=== PATIENT | female | born 1980 | race Caucasian/White ===

== ENCOUNTER → 2017-11-08 02:25 | Outpatient (CLI) | payer MEDICAID, SELFPAY ==
--- NOTE | 2017-11-08 10:58 | DI.REPORT_ITS ---
SYMPTOMS/DIAGNOSIS: CHRONIC DIARRHEA, K52.9, CHECK STOOL QUANTITY, ? OVERFLOW DIARRHEA DUE TO CONSTIPATION FLAT PLATE ABDOMEN: Two views. Comparison CT scan is 06/12/16. There is a small to moderate amount of retained stool predominantly involving the ascending and proximal transverse colon. No evidence of obstruction is seen. There are surgical clips in the right upper quadrant of the abdomen likely reflecting prior cholecystectomy. The bones and joints appear grossly unremarkable. IMPRESSION: Small amount of retained stool seen in the ascending and proximal transverse colon.
== END ==
PROVIDERS: PCP Family Medicine; Visit Provider Family Medicine
DX: K52.9 Noninfective gastroenteritis and colitis, unspecified (principal)
CPT/HCPCS: 74018

== ENCOUNTER 2022-02-13 13:54 | Emergency (ER) | payer MEDICAID, SELFPAY ==
[2022-02-13] VITALS (114 sets, daily range): BP systolic 50–155; BP diastolic 17–85; PULSE 42–131; RESP 17–41; TEMP 36.6; O2SAT 41–92
--- NOTE | 2022-02-13 13:45 | RT.EKG_ITS ---
APPROVED REPORT Exam: Resting ECG Reason for Exam: SEIZURE Patient Location: E HR:124 bpm ECG Measurements Heart Rate 124 AXIS NM 131 P 58 QRSd 86 QRS 53 QT 326 T 43 QTc 467 Conclusion Sinus tachycardia...rate> 99 Atrial premature complex...SV complex w/ short R-R interval Normal Sisters Nonspecific ST-T changes but significant baseline waver
--- NOTE | 2022-02-13 14:09 | ED.GENADUL_ITS ---
Discharge Plan Discharge Details Chief Complaint: Seizure Primary Care Provider: Anisa Garcia ED Provider: Jacques Perez Home Meds and New Rx's Prescriptions: No Action (DME) peak flow meter [Asthma Check Meter] 1 EACH device 1 ea Miscellaneous PRN albuterol sulfate [Proventil HFA] 1 PUFF HFA aerosol inhaler 1 puff Inhalation PRN PRN Medical Decision Making 41-year-old female with a past medical history of psychogenic seizures, asthma, depression, hyperlipidemia, morbid obesity, PCOS, presenting to the ER via EMS with her daughter for evaluation of what I am told were 3 psychogenic seizures earlier today which is normal for her and she is now slightly postictal however her concern is that of feeling ill for the past 2 weeks, cough. Clinically she is tachycardic, dry, and we are getting some O2 sats in the 70 range however when the O2 sat monitor is changed to a different finger we then get a good Plath and her oxygenation is anywhere from 92-100%. Clinically she does not appear as though her O2 sat is in the 70s. She seems to be mentating without difficulty. Given her history of cough and not feeling well for a couple of weeks, will skip chest x-ray to go straight to CTA to rule out PE, obtain cardiac work-up. Laboratory values reveal leukocytosis of 14.69 hemoglobin 15.2 hematocrit 47.6 platelet count 423. D-dimer elevated at 4518. Sodium 127. She is receiving 1 L IV fluid. Creatinine 2.6 with a GFR of 22.92. Appears to have an BIMAL. Troponin 878, given full dose aspirin. BNP 4712. Tox screen positive for cocaine and THC. At this point I feel as though PE is certainly the most reasonable diagnosis to explain her overall presentation but given her BIMAL unable to obtain CTA. I was able to reach out to our radiology department and confirmed that we will be able to perform a VQ scan at this evening at 1930. Given her multitude of abnormal labs, difficulty obtaining or I feel as though it is an accurate saturation level as she continues to have O2 sats anywhere between 75 and 100% at any given time I will obtain an ABG to assess her true perfusion status. I will also obtain a portable chest x-ray as we are unable to obtain CTA and the VQ scan will not happen for an additional 3-1/2 hours. This documentation was generated using [employer] system, please disregard any oddities of phrase or misspellings. Medical Records Medical records reviewed: Yes I reviewed the patient's medical records. Lab Data Lab results reviewed: Yes I reviewed the patient's lab results. Labs: Laboratory Tests Range/Units 02/13/22 02/13/22 02/13/22 14:50 14:50 14:50 WBC (4.4-10.8) 10^3/uL 14.69 H RBC (3.93-5.22) 10^6/uL 5.27 H Hgb (11.2-15.7) g/dL 15.2 Hct (36.0-46.0) % 47.6 H MCV (80-95) fL 90 MCH (27.0-33.0) pg 28.8 MCHC (32.0-36.0) % 31.9 L RDW (11.7-14.6) % 15.5 H Plt Count (130-400) 10^3/uL 423 H MPV (8.0-11.0) fL 9.7 Immature Gran % 0.4 Neutrophils % 73.7 Lymphocytes % 16.8 Monocytes % 6.6 Eosinophils % 2.2 Basophils % 0.3 Nucleated RBC % (0.0-0.3) % 0.0 Absolute Neutrophils (1.2-6.7) 10^3/uL 10.83 H Absolute Lymphocytes (1.2-3.4) 10^3/uL 2.47 Absolute Monocytes (0.1-0.8) 10^3/uL 0.97 H Absolute Eosinophils (0.0-0.7) 10^3/uL 0.32 Absolute Basophils (0.0-0.2) 10^3/uL 0.04 PT (9.3-11.0) sec 10.4 INR (0.9-1.1) 1.0 APTT (21.0-27.5) sec 27.6 H D-Dimer (<500) ng/mlFEU 4518 H Sodium (136-145) mmol/L 127 L Potassium (3.5-5.1) mmol/L 3.5 Chloride (98-107) mmol/L 96 L Carbon Dioxide (21.0-32.0) mmol/L 21.7 Anion Gap (3-11) mmol/L 9.3 BUN (7-18) mg/dL 27 H Creatinine (0.55-1.02) mg/dL 2.6 H Est GFR (CKD-EPI 2020) (mL/min/1.73m2) 22.92 Glucose (74-106) mg/dL 147 H Calcium (8.5-10.1) mg/dL 9.1 Magnesium (1.8-2.4) mg/dL 2.0 Total Bilirubin (0.2-1.0) mg/dL 0.2 AST (15-37) U/L 108 H ALT (14-59) U/L 42 Alkaline Phosphatase (46-116) U/L 123 H Troponin I (<or=60) ng/L 878 H* NT-Pro-B Natriuret Pep (<300) pg/mL 4712 H Total Protein (6.4-8.2) g/dL 8.1 Albumin (3.4-5.0) g/dL 2.9 L Urine Color (Yellow) Urine Clarity (Clear) Urine pH (5-8) Ur Specific Emerson (1.005-1.025) Urine Protein (Negative) mg/dL Urine Ketones (Negative) mg/dL Urine Blood (Negative) Urine Nitrite (Negative) Urine Bilirubin (Negative) Urine Urobilinogen (Up TO 0.2) EU/dL Ur Leukocyte Esterase (Negative) Urine RBC (0-2) HPF Urine WBC (0-5) HPF Ur Epithelial Cells (Negative) HPF Urine Crystals (Negative) HPF Urine Bacteria (Negative) HPF Urine Casts (Negative) LPF Urine Mucus (Negative) Ur Culture Indicated? Urine Glucose (Negative) mg/dL Urine Opiates Screen (Negative) Urine Methadone Screen (Negative) Ur Barbiturates Screen (Negative) Ur Tricyclics Screen (Negative) Ur Amphetamines Screen (Negative) U Benzodiazepines Scrn (Negative) Urine Cocaine Screen (Negative) Ur THC Screen (Negative) Range/Units 02/13/22 02/13/22 15:26 15:26 WBC (4.4-10.8) 10^3/uL RBC (3.93-5.22) 10^6/uL Hgb (11.2-15.7) g/dL Hct (36.0-46.0) % MCV (80-95) fL MCH (27.0-33.0) pg MCHC (32.0-36.0) % RDW (11.7-14.6) % Plt Count (130-400) 10^3/uL MPV (8.0-11.0) fL Immature Gran % Neutrophils % Lymphocytes % Monocytes % Eosinophils % Basophils % Nucleated RBC % (0.0-0.3) % Absolute Neutrophils (1.2-6.7) 10^3/uL Absolute Lymphocytes (1.2-3.4) 10^3/uL Absolute Monocytes (0.1-0.8) 10^3/uL Absolute Eosinophils (0.0-0.7) 10^3/uL Absolute Basophils (0.0-0.2) 10^3/uL PT (9.3-11.0) sec INR (0.9-1.1) APTT (21.0-27.5) sec D-Dimer (<500) ng/mlFEU Sodium (136-145) mmol/L Potassium (3.5-5.1) mmol/L Chloride (98-107) mmol/L Carbon Dioxide (21.0-32.0) mmol/L Anion Gap (3-11) mmol/L BUN (7-18) mg/dL Creatinine (0.55-1.02) mg/dL Est GFR (CKD-EPI 2020) (mL/min/1.73m2) Glucose (74-106) mg/dL Calcium (8.5-10.1) mg/dL Magnesium (1.8-2.4) mg/dL Total Bilirubin (0.2-1.0) mg/dL AST (15-37) U/L ALT (14-59) U/L Alkaline Phosphatase (46-116) U/L Troponin I (<or=60) ng/L NT-Pro-B Natriuret Pep (<300) pg/mL Total Protein (6.4-8.2) g/dL Albumin (3.4-5.0) g/dL Urine Color (Yellow) Yellow Urine Clarity (Clear) Sl Cloudy Urine pH (5-8) 5.5 Ur Specific Emerson (1.005-1.025) >= 1.030 H Urine Protein (Negative) mg/dL 100 H Urine Ketones (Negative) mg/dL Negative Urine Blood (Negative) Negative Urine Nitrite (Negative) Negative Urine Bilirubin (Negative) Negative Urine Urobilinogen (Up TO 0.2) EU/dL 0.2 Ur Leukocyte Esterase (Negative) Negative Urine RBC (0-2) HPF Negative Urine WBC (0-5) HPF Negative Ur Epithelial Cells (Negative) HPF Moderate Urine Crystals (Negative) HPF Moderate Amorphous Urine Bacteria (Negative) HPF Rare Urine Casts (Negative) LPF 10-20 Hyaline Urine Mucus (Negative) Trace Ur Culture Indicated? No Urine Glucose (Negative) mg/dL Negative Urine Opiates Screen (Negative) Negative Urine Methadone Screen (Negative) Negative Ur Barbiturates Screen (Negative) Negative Ur Tricyclics Screen (Negative) Negative Ur Amphetamines Screen (Negative) Negative U Benzodiazepines Scrn (Negative) Negative Urine Cocaine Screen (Negative) Positive A Ur THC Screen (Negative) Positive A ECG Data Attestation: I personally reviewed and interpreted this ECG (s) as follows: Interpretation: Sinus tachycardia, ventricular of 124, no STEMI. Sign Out Yes HPI General Mode of arrival: EMS . Date/Time Provider Initiated Documentation: 02/13/22 14:09 . Limitations to Documentation: no limitations . Information obtained by: patient, family and EMS . HPI Narrative: This is a 41-year-old female who reports a past medical history of psychogenic seizures, asthma, depression, hyperlipidemia, obesity, presenting to the ER after her significant other reports that she had what he describes as 3 psychogenic seizures which are normal for her, and presents to the ER post ictal, her primary complaint is feeling sick for the past 2 weeks associated with cough. Unfortunately she is a rather vague and poor historian. She reports productive cough for at least 2 weeks. She reports occasional lower back pain worse with movement. She denies recent trauma, headache, neck pain, chest pain, abdominal pain, nausea, vomiting, change in bowel or bladder function, pain or swelling her lower extremities. Related Data Home Medications Medication Instructions Recorded Confirmed albuterol sulfate 90 mcg/actuation 1 puff inhalation PRN PRN 09/06/12 02/13/22 aerosol inhaler (Proventil HFA) peak flow meter (Asthma Check 09/26/12 03/09/17 Meter) Allergies Allergy/AdvReac Type Severity Reaction Status Date / Time nut - unspecified [nut] Allergy Severe Anaphylaxsi Unverified 02/13/22 15:45 s hydrocortisone Allergy Intermediate RASH AND Unverified 02/13/22 15:45 [From Cortisporin] SWELLING latex Allergy Intermediate Hives Verified 02/13/22 15:45 montelukast sodium Allergy Intermediate Hives Verified 02/13/22 15:45 [From Singulair] neomycin [From Cortisporin] Allergy Intermediate RASH AND Verified 02/13/22 15:45 SWELLING neomycin sulfate Allergy Intermediate RASH AND Verified 02/13/22 15:45 [From Cortisporin] SWELLING polymyxin B Allergy Intermediate RASH AND Verified 02/13/22 15:45 [From Cortisporin] SWELLING zafirlukast [Zafirlukast] Allergy Intermediate HIVES/SWELL Verified 02/13/22 15:45 ING bacitracin Allergy Mild Hives Verified 02/13/22 15:45 [From Neosporin Plus] bacitracin zinc Allergy Mild Hives Verified 02/13/22 15:45 [From Neosporin Plus] polymyxin B sulfate Allergy Mild Hives Verified 02/13/22 15:45 [From Neosporin Plus] meperidine HCl [From Demerol] AdvReac Intermediate hypotension Verified 02/13/22 15:45 pantoprazole sodium AdvReac Intermediate decreases Unverified 02/13/22 15:45 [From Protonix] potassium level almonds Allergy Severe Anaphylaxsi Uncoded 02/13/22 15:45 s Review of Systems Constitutional Constitutional: Denies fatigue, Denies fever(s) and Denies weakness ENT Ears, Nose, Mouth, and Throat: Denies neck pain Cardiovascular Cardiovascular: Denies chest pain and Denies dyspnea Respiratory Respiratory: Reports cough and Denies dyspnea Gastrointestinal Gastrointestinal: Denies abdominal pain, Denies nausea and Denies vomiting Genitourinary Genitourinary: Denies dysuria Musculoskeletal Musculoskeletal: Reports back pain and Denies neck pain Integumentary/Breasts Skin/Breast: Denies rash Neurologic Neurologic: Denies weakness Endocrine Endocrine: Denies fatigue Hematologic/Lymphatic Hematologic/Lymphatic: Denies easy bleeding and Denies easy bruising PFSH All Active Problems Pain, abdominal, RUQ (Acute) Diabetes mellitus (Chronic) Hypertension (Chronic) Acute appendicitis (Acute) Medical History Asthma Barretts esophagus Depression Hyperlipidemia Morbid obesity with BMI of 45.0-49.9, adult PCOS (polycystic ovarian syndrome) Right knee pain Tension headache Vitamin D deficiency Surgical History Appendectomy (06/12/16) Arthroplasty of knee right 2015 Cholecystectomy Colonoscopy - IV Sedation 2012 EGD - IV Sedation 2011 Ligation of fallopian tube Repair of umbilical hernia at 7 years old Social History Smoking/Tobacco Use Status: Current every day Tobacco Type: e-cigarettes and smokeless tobacco Smoking risk assessment performed?: Yes Alcohol Intake: never Drug use: Never Substance use type: does not use Do you feel safe in your relationship?: Yes History History Para 2 Hx # Term Pregnancies Multiple births Hx # Pregnancies Ectopic pregnancies AB induced Hx Number of Living Children AB spontaneous Exam Const General: cooperative and no acute distress Orientation: alert, awake, oriented to person and oriented to place HENGA Head: normal to inspection, normocephalic and atraumatic Mouth: moist mucous membranes abnormal (dry) Eyes General: appearance normal, both eyes and all related structures Conjunctivae: conjunctivae normal Neck Neck: normal visual inspection, full ROM, no meningeal signs, trachea midline and supple Resp Effort & Inspection: normal respiratory effort, able to speak in complete sentences and tachypneic (Slightly) Auscultation: diminished lung sounds bilaterally in the lower lung veras Cardio Rate: tachycardic (120s) Rhythm: regular rhythm GI Inspection: obesity Palpation: soft, not firm, no guarding and nontender Back/Spine/Pelvis Back: back tenderness (Diffuse mild lumbar) Skin General skin exam: no rashes or lesions noted Neuro General: patient alert, patient awake, moves all extremities and no focal motor deficits Cognition: normal cognition Speech: speech normal Motor: muscle tone normal throughout Sensory Exam: no sensory deficits noted Extrem General: normal to inspection, full ROM, capillary refill normal, no pedal edema and no calf tenderness Psych Appearance: grossly normal Mental Status: mental status grossly normal Critical Care Time Critical Care Time Critical Care Time: Yes Total Critical Care Time: 35 Attestation: Upon my evaluation, this patient had a high probability of clinically significant, life-threatening deterioration due to their current medical conditions, which required my direct attention, intervention, and personal management. I have personally provided greater than 30 minutes of critical care time exclusive of the time spend on separately billable procedures. Time includes obtaining a history, examining the patient, pulse oximetry, review of laboratory data, radiology results, discussion with consultants, arranging urgent treatment with development of a management plan, evaluation of patient's response to treatment, and monitoring for potential decompensation. Interventions were performed as documented above.
[2022-02-13 15:05] LABS: Abs Immature Grans 0.06 10^3/uL (0.0-0.06); Absolute Basophil Count 0.04 10^3/uL (0.0-0.2); Absolute Lymphocyte Count 2.47 10^3/uL (1.2-3.4); Absolute Monocyte Count 0.97 10^3/uL (0.1-0.8); Basophils % 0.3; Eosinophils % 2.2; HCT 47.6 % (36.0-46.0); HGB 15.2 g/dL (11.2-15.7); Immature Grans % 0.4; Lymphocytes % 16.8; MCH 28.8 pg (27.0-33.0); MCHC 31.9 % (32.0-36.0); MCV 90 fL (80-95); MPV 9.7 fL (8.0-11.0); Monocytes % 6.6; Neutrophils % 73.7; Platelet Count 423 10^3/uL (130-400); RBC 5.27 10^6/uL (3.93-5.22); RDW 15.5 % (11.7-14.6); RDW-SD 51.5 fL; WBC 14.69 10^3/uL (4.4-10.8)
[2022-02-13] MEDS: Normal Saline 1,000 ML 1000 ML IV (15:11)
[2022-02-13 15:19] LABS: Absolute Eosinophil Count 0.32 10^3/uL (0.0-0.7); Absolute Neutrophil Count 10.83 10^3/uL (1.2-6.7)
[2022-02-13 15:23] LABS: PTT Activated 27.6 sec (21.0-27.5); Prothrombin Time 10.4 sec (9.3-11.0)
[2022-02-13 15:26] LABS: ALT 42 U/L (14-59); AST 108 U/L (15-37); Albumin 2.9 g/dL (3.4-5.0); Alkaline Phosphatase 123 U/L (46-116); Anion Gap 9.3 mmol/L (3-11); BUN 27 mg/dL (7-18); Bilirubin, Total 0.2 mg/dL (0.2-1.0); CO2 21.7 mmol/L (21.0-32.0); CREATININE 2.6 mg/dL (0.55-1.02); Calcium 9.1 mg/dL (8.5-10.1); Chloride 96 mmol/L (98-107); Estimated GFR 22.92 (mL/min/1.73m2); Glucose 147 mg/dL (74-106); NT-proBNP 4712 pg/mL (<300); Potassium 3.5 mmol/L (3.5-5.1); Sodium 127 mmol/L (136-145); Total Protein 8.1 g/dL (6.4-8.2)
[2022-02-13 15:28] LABS: Troponin I 878 ng/L (<or=60)
[2022-02-13] MEDS: Aspirin 81 MG CHEW 324 MG CH (15:38)
[2022-02-13 15:39] LABS: D-Dimer 4518 ng/mlFEU (<500)
[2022-02-13 15:42] LABS: Bilirubin Negative (Negative); Blood Negative (Negative); Clarity Sl Cloudy (Clear); Glucose Negative (Negative); Ketones Negative (Negative); Leukocyte Esterase Negative (Negative); Nitrite Negative (Negative); Specific Gravity >= 1.030 (1.005-1.025); Urobilinogen 0.2 EU/dL (Up TO 0.2); pH 5.5 (5-8)
[2022-02-13 15:46] LABS: *AMPHETAMINES SCREEN URINE Negative (Negative); *BARBITURATES SCREEN URINE Negative (Negative); *BENZODIAZEPINES SCREEN URINE Negative (Negative); Cannabinoids THC Positive (Negative); Cocaine Screen,Urine Positive (Negative); METHADONE URINE SCREEN Negative (Negative); OPIATES URINE SCREEN Negative (Negative); Tricyclic Antidepressants Negative (Negative)
[2022-02-13 15:58] LABS: Bacteria Rare HPF (Negative); Crystals Moderate Amorphous HPF (Negative); Epithelial Cells Moderate HPF (Negative); Mucus Trace (Negative); RBC Negative HPF (0-2); WBC Negative HPF (0-5)
[2022-02-13 15:59] LABS: C & S Indicated? No; Casts 10-20 Hyaline LPF (Negative)
--- NOTE | 2022-02-13 16:00 | DI.RAD_ITS ---
Exam(s) XR PORTABLE CHEST AP EXAM: XR PORTABLE CHEST AP CLINICAL HISTORY: cough TECHNIQUE: 2D digital imaging was performed. Semi-erect AP COMPARISON: CR ABD FLAT UPRIGHT PA CHEST from 08/29/2011 FINDINGS: The exam is limited by portable technique and underpenetration. There are severe bilateral diffuse p ulmonary infiltrates. No visible effusion or pneumothorax. Heart appears mildly enlarged but this c ould be projectional. IMPRESSION: Severe bilateral pneumonia. DATA REPOSITORY: RADIATION DOSE DELIVERED:
[2022-02-13 16:18] LABS: COVID-19 PCR Negative (Negative); Influenza A PCR Negative (Negative); Influenza B PCR Negative (Negative); RSV PCR Negative (Negative)
[2022-02-13 16:20] LABS: Source Nasopharynx
[2022-02-13 16:39] LABS: BE -8 mmol/L (-2-3); HCO3 18 mmol/L (22-26); pCO2 38 mmHg (35-45); pH 7.29 (7.35-7.45); pO2 42 mmHg (80-105); sO2 73 % (95-98); tCO2 17 mmol/L (23-27)
--- NOTE | 2022-02-13 16:41 | W.EDPROG ---
Date of service: 02/13/22 Time of Service: 16:42 Medical Decision Making Care assumed from provider (BEN Montelongo) Please see their initial HPI, PE, and documentation. Discussed patient details and case and pending workup and disposition. Patient is concerning due to O2 sat running in the 70s consistently, upon my initial evaluation patient does appear sleepy, obtunded, she does open her eyes to verbal. There have not hard time getting the ABG RT at bedside. Chest x-ray is concerning. Patient O2 sat 76% on 5 L nasal cannula, did instruct staff to put her on a nonrebreather. Patient is obtunded, chest x-ray shows white out, inform Dr. Ramirez who is at bedside for intubation. We will plan to admit patient to ICU. Plan per my colleague is a VQ scan to rule out PE at approximately 7:[address] Ramirez to take patient over at my request due to patient's critical status informed and updated family on intubation. Patient did give me a verbal that she is okay with us breathing for her. We will plan to do head CT. Patient's O2 sat did come up to approximately 80% on nonrebreather at 10 L. Patient's family updated on progression of patient's care and plan for admission versus transfer they verbalized understanding. Please see Dr. Ramirez's note for continuation of patient's care. Medical Records Medical records reviewed: Yes I reviewed the patient's medical records. Lab Data Lab results reviewed: Yes I reviewed the patient's lab results. Labs: 02/13/22 20:05 Blood Blood Culture - Pending 02/13/22 20:05 Blood Blood Culture - Pending Laboratory Tests Range/Units 02/13/22 02/13/22 02/13/22 14:50 14:50 14:50 WBC (4.4-10.8) 10^3/uL 14.69 H RBC (3.93-5.22) 10^6/uL 5.27 H Hgb (11.2-15.7) g/dL 15.2 Hct (36.0-46.0) % 47.6 H MCV (80-95) fL 90 MCH (27.0-33.0) pg 28.8 MCHC (32.0-36.0) % 31.9 L RDW (11.7-14.6) % 15.5 H Plt Count (130-400) 10^3/uL 423 H MPV (8.0-11.0) fL 9.7 Immature Gran % 0.4 Neutrophils % 73.7 Lymphocytes % 16.8 Monocytes % 6.6 Eosinophils % 2.2 Basophils % 0.3 Nucleated RBC % (0.0-0.3) % 0.0 Absolute Neutrophils (1.2-6.7) 10^3/uL 10.83 H Absolute Lymphocytes (1.2-3.4) 10^3/uL 2.47 Absolute Monocytes (0.1-0.8) 10^3/uL 0.97 H Absolute Eosinophils (0.0-0.7) 10^3/uL 0.32 Absolute Basophils (0.0-0.2) 10^3/uL 0.04 PT (9.3-11.0) sec 10.4 INR (0.9-1.1) 1.0 APTT (21.0-27.5) sec 27.6 H D-Dimer (<500) ng/mlFEU 4518 H ABG Sample Site ABG pH (7.35-7.45) ABG pCO2 (35-45) mmHg ABG pO2 (80-105) mmHg ABG HCO3 (22-26) mmol/L ABG Total CO2 (23-27) mmol/L ABG O2 Saturation (95-98) % ABG Base Excess (-2-3) mmol/L VBG pH (7.31-7.41) VBG pCO2 (41-51) mmHg VBG pO2 mmHg VBG HCO3 (23-28) mmol/L VBG Total CO2 (24-29) mmol/L VBG O2 Saturation % VBG Base Excess (-2-3) mmol/L VBG Lactate (0.6-1.4) mmol/L Oxygen Liter Flow L Sodium (136-145) mmol/L 127 L Potassium (3.5-5.1) mmol/L 3.5 Chloride (98-107) mmol/L 96 L Carbon Dioxide (21.0-32.0) mmol/L 21.7 Anion Gap (3-11) mmol/L 9.3 BUN (7-18) mg/dL 27 H Creatinine (0.55-1.02) mg/dL 2.6 H Est GFR (CKD-EPI 2020) (mL/min/1.73m2) 22.92 Glucose (74-106) mg/dL 147 H Calcium (8.5-10.1) mg/dL 9.1 Magnesium (1.8-2.4) mg/dL 2.0 Total Bilirubin (0.2-1.0) mg/dL 0.2 AST (15-37) U/L 108 H ALT (14-59) U/L 42 Alkaline Phosphatase (46-116) U/L 123 H Troponin I (<or=60) ng/L 878 H* NT-Pro-B Natriuret Pep (<300) pg/mL 4712 H Total Protein (6.4-8.2) g/dL 8.1 Albumin (3.4-5.0) g/dL 2.9 L Urine Color (Yellow) Urine Clarity (Clear) Urine pH (5-8) Ur Specific [place] (1.005-1.025) Urine Protein (Negative) mg/dL Urine Ketones (Negative) mg/dL Urine Blood (Negative) Urine Nitrite (Negative) Urine Bilirubin (Negative) Urine Urobilinogen (Up TO 0.2) EU/dL Ur Leukocyte Esterase (Negative) Urine RBC (0-2) HPF Urine WBC (0-5) HPF Ur Epithelial Cells (Negative) HPF Urine Crystals (Negative) HPF Urine Bacteria (Negative) HPF Urine Casts (Negative) LPF Urine Mucus (Negative) Ur Culture Indicated? Urine Glucose (Negative) mg/dL Urine Opiates Screen (Negative) Urine Methadone Screen (Negative) Ur Barbiturates Screen (Negative) Ur Tricyclics Screen (Negative) Ur Amphetamines Screen (Negative) U Benzodiazepines Scrn (Negative) Urine Cocaine Screen (Negative) Ur THC Screen (Negative) COVID-19 Source SARS-CoV-2 (PCR) (Negative) Influenza Type A (PCR) (Negative) Influenza Type B (PCR) (Negative) RSV (PCR) (Negative) Range/Units 02/13/22 02/13/22 02/13/22 15:26 15:26 15:30 WBC (4.4-10.8) 10^3/uL RBC (3.93-5.22) 10^6/uL Hgb (11.2-15.7) g/dL Hct (36.0-46.0) % MCV (80-95) fL MCH (27.0-33.0) pg MCHC (32.0-36.0) % RDW (11.7-14.6) % Plt Count (130-400) 10^3/uL MPV (8.0-11.0) fL Immature Gran % Neutrophils % Lymphocytes % Monocytes % Eosinophils % Basophils % Nucleated RBC % (0.0-0.3) % Absolute Neutrophils (1.2-6.7) 10^3/uL Absolute Lymphocytes (1.2-3.4) 10^3/uL Absolute Monocytes (0.1-0.8) 10^3/uL Absolute Eosinophils (0.0-0.7) 10^3/uL Absolute Basophils (0.0-0.2) 10^3/uL PT (9.3-11.0) sec INR (0.9-1.1) APTT (21.0-27.5) sec D-Dimer (<500) ng/mlFEU ABG Sample Site ABG pH (7.35-7.45) ABG pCO2 (35-45) mmHg ABG pO2 (80-105) mmHg ABG HCO3 (22-26) mmol/L ABG Total CO2 (23-27) mmol/L ABG O2 Saturation (95-98) % ABG Base Excess (-2-3) mmol/L VBG pH (7.31-7.41) VBG pCO2 (41-51) mmHg VBG pO2 mmHg VBG HCO3 (23-28) mmol/L VBG Total CO2 (24-29) mmol/L VBG O2 Saturation % VBG Base Excess (-2-3) mmol/L VBG Lactate (0.6-1.4) mmol/L Oxygen Liter Flow L Sodium (136-145) mmol/L Potassium (3.5-5.1) mmol/L Chloride (98-107) mmol/L Carbon Dioxide (21.0-32.0) mmol/L Anion Gap (3-11) mmol/L BUN (7-18) mg/dL Creatinine (0.55-1.02) mg/dL Est GFR (CKD-EPI 2020) (mL/min/1.73m2) Glucose (74-106) mg/dL Calcium (8.5-10.1) mg/dL Magnesium (1.8-2.4) mg/dL Total Bilirubin (0.2-1.0) mg/dL AST (15-37) U/L ALT (14-59) U/L Alkaline Phosphatase (46-116) U/L Troponin I (<or=60) ng/L NT-Pro-B Natriuret Pep (<300) pg/mL Total Protein (6.4-8.2) g/dL Albumin (3.4-5.0) g/dL Urine Color (Yellow) Yellow Urine Clarity (Clear) Sl Cloudy Urine pH (5-8) 5.5 Ur Specific [place] (1.005-1.025) >= 1.030 H Urine Protein (Negative) mg/dL 100 H Urine Ketones (Negative) mg/dL Negative Urine Blood (Negative) Negative Urine Nitrite (Negative) Negative Urine Bilirubin (Negative) Negative Urine Urobilinogen (Up TO 0.2) EU/dL 0.2 Ur Leukocyte Esterase (Negative) Negative Urine RBC (0-2) HPF Negative Urine WBC (0-5) HPF Negative Ur Epithelial Cells (Negative) HPF Moderate Urine Crystals (Negative) HPF Moderate Amorphous Urine Bacteria (Negative) HPF Rare Urine Casts (Negative) LPF 10-20 Hyaline Urine Mucus (Negative) Trace Ur Culture Indicated? No Urine Glucose (Negative) mg/dL Negative Urine Opiates Screen (Negative) Negative Urine Methadone Screen (Negative) Negative Ur Barbiturates Screen (Negative) Negative Ur Tricyclics Screen (Negative) Negative Ur Amphetamines Screen (Negative) Negative U Benzodiazepines Scrn (Negative) Negative Urine Cocaine Screen (Negative) Positive A Ur THC Screen (Negative) Positive A COVID-19 Source Nasopharynx SARS-CoV-2 (PCR) (Negative) Negative Influenza Type A (PCR) (Negative) Negative Influenza Type B (PCR) (Negative) Negative RSV (PCR) (Negative) Negative Range/Units 02/13/22 02/13/22 02/13/22 16:35 17:20 20:05 WBC (4.4-10.8) 10^3/uL RBC (3.93-5.22) 10^6/uL Hgb (11.2-15.7) g/dL Hct (36.0-46.0) % MCV (80-95) fL MCH (27.0-33.0) pg MCHC (32.0-36.0) % RDW (11.7-14.6) % Plt Count (130-400) 10^3/uL MPV (8.0-11.0) fL Immature Gran % Neutrophils % Lymphocytes % Monocytes % Eosinophils % Basophils % Nucleated RBC % (0.0-0.3) % Absolute Neutrophils (1.2-6.7) 10^3/uL Absolute Lymphocytes (1.2-3.4) 10^3/uL Absolute Monocytes (0.1-0.8) 10^3/uL Absolute Eosinophils (0.0-0.7) 10^3/uL Absolute Basophils (0.0-0.2) 10^3/uL PT (9.3-11.0) sec INR (0.9-1.1) APTT (21.0-27.5) sec D-Dimer (<500) ng/mlFEU ABG Sample Site Right Radial ABG pH (7.35-7.45) 7.29 L ABG pCO2 (35-45) mmHg 38 ABG pO2 (80-105) mmHg 42 L ABG HCO3 (22-26) mmol/L 18 L ABG Total CO2 (23-27) mmol/L 17 L ABG O2 Saturation (95-98) % 73 L ABG Base Excess (-2-3) mmol/L -8 L VBG pH (7.31-7.41) VBG pCO2 (41-51) mmHg VBG pO2 mmHg VBG HCO3 (23-28) mmol/L VBG Total CO2 (24-29) mmol/L VBG O2 Saturation % VBG Base Excess (-2-3) mmol/L VBG Lactate (0.6-1.4) mmol/L 3.0 H* Oxygen Liter Flow L 5 Sodium (136-145) mmol/L Potassium (3.5-5.1) mmol/L Chloride (98-107) mmol/L Carbon Dioxide (21.0-32.0) mmol/L Anion Gap (3-11) mmol/L BUN (7-18) mg/dL Creatinine (0.55-1.02) mg/dL Est GFR (CKD-EPI 2020) (mL/min/1.73m2) Glucose (74-106) mg/dL Calcium (8.5-10.1) mg/dL Magnesium (1.8-2.4) mg/dL Total Bilirubin (0.2-1.0) mg/dL AST (15-37) U/L ALT (14-59) U/L Alkaline Phosphatase (46-116) U/L Troponin I (<or=60) ng/L 1344 H* NT-Pro-B Natriuret Pep (<300) pg/mL Total Protein (6.4-8.2) g/dL Albumin (3.4-5.0) g/dL Urine Color (Yellow) Urine Clarity (Clear) Urine pH (5-8) Ur Specific [place] (1.005-1.025) Urine Protein (Negative) mg/dL Urine Ketones (Negative) mg/dL Urine Blood (Negative) Urine Nitrite (Negative) Urine Bilirubin (Negative) Urine Urobilinogen (Up TO 0.2) EU/dL Ur Leukocyte Esterase (Negative) Urine RBC (0-2) HPF Urine WBC (0-5) HPF Ur Epithelial Cells (Negative) HPF Urine Crystals (Negative) HPF Urine Bacteria (Negative) HPF Urine Casts (Negative) LPF Urine Mucus (Negative) Ur Culture Indicated? Urine Glucose (Negative) mg/dL Urine Opiates Screen (Negative) Urine Methadone Screen (Negative) Ur Barbiturates Screen (Negative) Ur Tricyclics Screen (Negative) Ur Amphetamines Screen (Negative) U Benzodiazepines Scrn (Negative) Urine Cocaine Screen (Negative) Ur THC Screen (Negative) COVID-19 Source SARS-CoV-2 (PCR) (Negative) Influenza Type A (PCR) (Negative) Influenza Type B (PCR) (Negative) RSV (PCR) (Negative) Range/Units 02/13/22 20:05 WBC (4.4-10.8) 10^3/uL RBC (3.93-5.22) 10^6/uL Hgb (11.2-15.7) g/dL Hct (36.0-46.0) % MCV (80-95) fL MCH (27.0-33.0) pg MCHC (32.0-36.0) % RDW (11.7-14.6) % Plt Count (130-400) 10^3/uL MPV (8.0-11.0) fL Immature Gran % Neutrophils % Lymphocytes % Monocytes % Eosinophils % Basophils % Nucleated RBC % (0.0-0.3) % Absolute Neutrophils (1.2-6.7) 10^3/uL Absolute Lymphocytes (1.2-3.4) 10^3/uL Absolute Monocytes (0.1-0.8) 10^3/uL Absolute Eosinophils (0.0-0.7) 10^3/uL Absolute Basophils (0.0-0.2) 10^3/uL PT (9.3-11.0) sec INR (0.9-1.1) APTT (21.0-27.5) sec D-Dimer (<500) ng/mlFEU ABG Sample Site ABG pH (7.35-7.45) ABG pCO2 (35-45) mmHg ABG pO2 (80-105) mmHg ABG HCO3 (22-26) mmol/L ABG Total CO2 (23-27) mmol/L ABG O2 Saturation (95-98) % ABG Base Excess (-2-3) mmol/L VBG pH (7.31-7.41) 7.13 L* VBG pCO2 (41-51) mmHg 47 VBG pO2 mmHg 26 VBG HCO3 (23-28) mmol/L 15 L VBG Total CO2 (24-29) mmol/L 15 L VBG O2 Saturation % 35 VBG Base Excess (-2-3) mmol/L -14 L VBG Lactate (0.6-1.4) mmol/L Oxygen Liter Flow L Sodium (136-145) mmol/L Potassium (3.5-5.1) mmol/L Chloride (98-107) mmol/L Carbon Dioxide (21.0-32.0) mmol/L Anion Gap (3-11) mmol/L BUN (7-18) mg/dL Creatinine (0.55-1.02) mg/dL Est GFR (CKD-EPI 2020) (mL/min/1.73m2) Glucose (74-106) mg/dL Calcium (8.5-10.1) mg/dL Magnesium (1.8-2.4) mg/dL Total Bilirubin (0.2-1.0) mg/dL AST (15-37) U/L ALT (14-59) U/L Alkaline Phosphatase (46-116) U/L Troponin I (<or=60) ng/L NT-Pro-B Natriuret Pep (<300) pg/mL Total Protein (6.4-8.2) g/dL Albumin (3.4-5.0) g/dL Urine Color (Yellow) Urine Clarity (Clear) Urine pH (5-8) Ur Specific [place] (1.005-1.025) Urine Protein (Negative) mg/dL Urine Ketones (Negative) mg/dL Urine Blood (Negative) Urine Nitrite (Negative) Urine Bilirubin (Negative) Urine Urobilinogen (Up TO 0.2) EU/dL Ur Leukocyte Esterase (Negative) Urine RBC (0-2) HPF Urine WBC (0-5) HPF Ur Epithelial Cells (Negative) HPF Urine Crystals (Negative) HPF Urine Bacteria (Negative) HPF Urine Casts (Negative) LPF Urine Mucus (Negative) Ur Culture Indicated? Urine Glucose (Negative) mg/dL Urine Opiates Screen (Negative) Urine Methadone Screen (Negative) Ur Barbiturates Screen (Negative) Ur Tricyclics Screen (Negative) Ur Amphetamines Screen (Negative) U Benzodiazepines Scrn (Negative) Urine Cocaine Screen (Negative) Ur THC Screen (Negative) COVID-19 Source SARS-CoV-2 (PCR) (Negative) Influenza Type A (PCR) (Negative) Influenza Type B (PCR) (Negative) RSV (PCR) (Negative) Sign Out Yes Sign Out Sign Out Data: Sign Out Comment: Presented status post 3 psychogenic seizures per significant other, post ictal. Her complaint is cough and not feeling well for a couple of weeks. Laboratory values are grossly abnormal with elevated troponin, elevated D-dimer, elevated BNP, hyponatremia, BIMAL. Unable to obtain CTA given her BIMAL. Urine tox positive for cocaine. Given the erratic O2 saturation levels obtaining ABG to assess true perfusion status. Able to obtain VQ scan at 1930 this evening. Patient given full dose aspirin. Last updated by Jacques Perez PA at 02/13/22 16:15 Discharge Plan Disposition Patient Disposition: Transfer-Acute Inpatient Care Specific Acute In Facility: [facility] Condition: Stable Discharge Details Clinical Impression: Bilateral pulmonary infiltrates on chest x-ray, Hypoxia, Metabolic acidosis Primary Care Provider: Anisa Garcia ED Provider: Pa aRmirez Home Meds and New Rx's Prescriptions: No Action (DME) peak flow meter [Asthma Check Meter] 1 EACH device 1 ea Miscellaneous PRN albuterol sulfate [Proventil HFA] 1 PUFF HFA aerosol inhaler 1 puff Inhalation PRN PRN ondansetron 4 mg Tablet,Disintegrating 4 mg PO Q8H PRN aripiprazole 2 mg tablet 1 tab PO HS Label Comments: TAKE 1 TABLET BY MOUTH AT BEDTIME sertraline 50 mg tablet 1 tab PO QAM lorazepam 1 mg tablet 1 tab PO BID PRN Label Comments: TAKE 1 TABLET BY MOUTH TWICE DAILY NEEDED FOR PANIC ATTACKS buspirone 10 mg tablet 1 tab PO Q8H PRN hydroxyzine HCl 25 mg tablet 1 tab PO Q8H PRN Label Comments: TAKE 1 TABLET BY MOUTH EVERY 8 HOURS NEEDED FOR ANXIETY OR PANIC pregabalin 150 mg capsule 1 cap PO BID Label Comments: TAKE 1 CAPSULE BY MOUTH TWICE DAILY
--- NOTE | 2022-02-13 16:53 | DI.CT_ITS ---
Exam(s) CT HEAD WO EXAM: CT HEAD WO CLINICAL HISTORY: AMS, seizure. TECHNIQUE: Imaging Protocol: Axial computed tomography images with coronal and sagittal reformatted images were created and reviewed COMPARISON: No exams were available for comparison FINDINGS: There is nasoenteric tube noted . the ventricular system is normal in appearance. No evidence of acute intracranial hemorrhage, mass effect, or midline shift. Vascular space versus o ld right basal ganglia lacunar infarct noted The orbital structures are unremarkable. The temporal bone structures appear intact. Calvarium: Normal. Visualized Paranasal sinuses/Mastoids: Clear. IMPRESSION: No evidence of acute process. RADIATION DOSE DELIVERED: 760.69mGy.cm Total DLP 760.69mGy.cm Total DLP DATA REPOSITORY: All CT scans at this facility are submitted to the National Radiology Data Registry (NRDR) Dose Index Registry (DIR) with the [employer] (A[employer]). RADIATION OPTIMIZATION: All CT scans at this facility use at least one of these dose optimization te chniques: automated exposure control; mA and/or kV adjustment per patient size (includes targeted exa ms where dose is matched to clinical indication); or iterative reconstruction.
[2022-02-13] MEDS: Etomidate 20 MG/10 ML VIAL IVP (16:55)
[2022-02-13] MEDS: Succinylcholine 200 MG/10 ML VIAL 100 MG IVP (16:56)
[2022-02-13] MEDS: Midazolam 2 MG/2 ML VIAL IVP (17:05)
[2022-02-13] MEDS: PROPOFOL 1,000 MG/100 ML BTL 12.7 MG (17:05)
[2022-02-13] MEDS: Propofol 200 MG/20 ML VIAL 20 MG IVP ×5 (17:07→18:20)
[2022-02-13] MEDS: PROPOFOL 1,000 MG/100 ML BTL 25.4 MG (17:09)
[2022-02-13] MEDS: Normal Saline 1,000 ML 50 ML IV (17:10)
--- NOTE | 2022-02-13 17:15 | DI.RAD_ITS ---
Exam(s) XR PORTABLE CHEST AP EXAM: XR PORTABLE CHEST AP CLINICAL HISTORY: post intubation TECHNIQUE: COMPARISON: CR XR PORTABLE CHEST AP from 02/13/2022 FINDINGS: Portable AP chest at 1745 hours. Previously noted bilateral diffuse intrapulmonary opacities are aga in seen. There is interval placement of an ET tube which appears to be in good position. There is a n NG tube which extends beyond the lower limits of the imaging field and presumably lies in the stoma ch. IMPRESSION: RADIATION DOSE DELIVERED: Total DLP
--- NOTE | 2022-02-13 17:15 | RT.EKG_ITS ---
APPROVED REPORT Exam: Resting ECG Reason for Exam: SOB Patient Location: E HR:102 bpm ECG Measurements Heart Rate 102 AXIS UT 129 P 27 QRSd 79 QRS 52 QT 363 T 59 QTc 473 Conclusion Sinus tachycardia...rate> 99 Normal [place] Normal Electrocardiogram except for rate
[2022-02-13] MEDS: PROPOFOL 1,000 MG/100 ML BTL 38.1 MG (17:30)
[2022-02-13 17:32] LABS: FIO2L 5 L; Site Right Radial
[2022-02-13] MEDS: PIPERACILLIN/TAZO 4.5 GM in Normal Saline 100 ML IVPB (17:48)
[2022-02-13 17:49] LABS: Troponin I 1344 ng/L (<or=60)
[2022-02-13] MEDS: Furosemide 40 MG/4 ML VIAL (17:50)
--- NOTE | 2022-02-13 18:07 | W.EDPROG ---
Date of service: 02/13/22 Time of Service: 18:07 Medical Decision Making Patient intubated by me with use of etomidate and succinylcholine. She was bagged up to a saturation in the 90s prior to RSI. She was then intubated without difficulty on first attempt. She is being sedated with propofol. NG tube placed by me. Miles placed by nursing. Will obtain CT head due to altered mental status and report of psychogenic seizures. With cocaine on board need to rule out a bleed. Repeat chest x-ray postintubation shows better aeration but continued evidence of diffuse interstitial opacities. ET tube in good position. NG tube in good position. Repeat EKG remains sinus tachycardia without any ST changes. Repeat troponin is going up and is now 1344. Lactic acid and blood cultures are pending. Will obtain ABG when she returns from CT. She has been given vancomycin and Zosyn for presumed pneumonia though ARDS, pulmonary edema, CHF, viral infection have not been completely ruled out at this point. Patient continues to have poor waveform for pulse ox. She also has faint pulses but blood pressures have been anywhere from a systolic of 50 to a systolic of 100. We have tried both radial and femoral arterial stick without success to get ABG. Considered arterial line placement but radial arteries on ultrasound extremely tiny. I did prep and drape left groin for femoral art line. Ultrasound showed femoral artery to be directly on top of the femoral vein which was much larger than the artery. 3 attempts to cannulate the artery were unsuccessful with venous cannulation instead even with ultrasound use. Heart rate, vent settings and peak pressures are all better. Blood pressure in the right arm significantly better than left arm for unknown reason. [facility] and [facility] are a capacity. I did speak with hospitalist at [facility] that does have an ICU bed but does not have fruit grading supervisor available over the weekend and is not considered tertiary care. Reached out to [facility] in [facility]. Was able to speak to the fruit grading supervisor there Dr. Lord. She has accepted the patient for further evaluation and management. COUNT INCLUDES THE [facility] will be able to transport by air. I have updated the family regarding the last few hours of her care here. Her troponin did go from 800 to 1300 but her EKG remains completely normal. Her pH is worse at 7.13 and her bicarb is 15 but her lactic acid is only 3. PCO2 is 47 and she continues to breathe over the vent. I do not know what is driving her metabolic acidosis. Her glucose is normal. Her blood pressures and her saturations continue to vary over a wide range from low to high. I have started her on fluids as there is no urinary output. We have started on low-dose norepi to try to get a less variable pressure. She remains sedated on propofol. Medical Records Medical records reviewed: Yes I reviewed the patient's medical records. Lab Data Lab results reviewed: Yes I reviewed the patient's lab results. ECG Data Attestation: I personally reviewed and interpreted this ECG (s) as follows: Interpretation: See EKG Sign Out Yes Exam Narrative Exam Narrative: Const: WDWN female somewhat altered/lethargic but responsive to conversation. HEENT: NC/AT. Normal facial exam. Eyes: Normal conjunctiva and sclera. Neck: Supple. Trachea midline. Lungs: Tachypneic with diminished breath sounds throughout. Cor: RRR. Tachycardic. Good radial pulses. GI: Soft. ND. Neuro: Altered and lethargic but conversant. Cranial nerves II - XII grossly intact. No gross motor or sensory deficit. Ext: No C/C/E. Skin: Cool and diaphoretic without rash. Narrative I took the patient over from [facility] due to altered mental status, lethargy, low oxygen saturation and markedly abnormal chest x-ray with complete whiteout of both lungs. She had presented after reported psychogenic seizures. Reportedly told initial provider she has had cough and unwell for 2 weeks. Of note white count is elevated, creatinine markedly elevated consistent with BIMAL, troponin positive but EKG normal so unknown whether related to BIMAL or not. She is hyponatremic. Her drug screen is positive for marijuana and cocaine. Her ABG may be mixed venous but she does have acidosis with normal PCO2 but a bicarb of 17. Given her chest x-ray findings I believe her saturations of 70-80 are probably real and given her mental status we will plan on intubating patient. Procedures Intubation Time out performed: Yes sedative: Etomidate Mg Given: 20 paralytic: Succinylcholine Mg Given: 100 Laryngoscope: Tana ET Tube Size: 7.5 ET Tube Uncuffed: Yes Tube Secured Depth (cm): 19 Tube Secured Location: teeth Tube Placement Confirmation: visualized tube passing through cords, equal breath sounds bilaterally and confirmation by capnometry Patient Tolerated Procedure: well Intubation Complications: none Critical Care Time Critical Care Time Critical Care Time: Yes Total Critical Care Time: 120 Attestation: Upon my evaluation, this patient had a high probability of imminent or life-threatening deterioration, which required my direct attention, intervention, and personal management. I have personally provided 120 minutes of critical care time exclusive of time spent on separately billable procedures. Time includes review of laboratory data, radiology results, discussion with consultants, and monitoring for potential decompensation. Interventions were performed as documented above. Sign Out Sign Out Data: Sign Out Comment: Presented status post 3 psychogenic seizures per significant other, post ictal. Her complaint is cough and not feeling well for a couple of weeks. Laboratory values are grossly abnormal with elevated troponin, elevated D-dimer, elevated BNP, hyponatremia, BIMAL. Unable to obtain CTA given her BIMAL. Urine tox positive for cocaine. Given the erratic O2 saturation levels obtaining ABG to assess true perfusion status. Able to obtain VQ scan at 1930 this evening. Patient given full dose aspirin. Last updated by Jacques Perez PA at 02/13/22 16:15 Discharge Plan Disposition Patient Disposition: Transfer-Acute Inpatient Care Specific Acute In Facility: [place] Condition: Stable Discharge Details Clinical Impression: Bilateral pulmonary infiltrates on chest x-ray, Hypoxia, Metabolic acidosis Primary Care Provider: Anisa Garcia ED Provider: Pa Ramirez Home Meds and New Rx's Prescriptions: No Action (DME) peak flow meter [Asthma Check Meter] 1 EACH device 1 ea Miscellaneous PRN albuterol sulfate [Proventil HFA] 1 PUFF HFA aerosol inhaler 1 puff Inhalation PRN PRN ondansetron 4 mg Tablet,Disintegrating 4 mg PO Q8H PRN aripiprazole 2 mg tablet 1 tab PO HS Label Comments: TAKE 1 TABLET BY MOUTH AT BEDTIME sertraline 50 mg tablet 1 tab PO QAM lorazepam 1 mg tablet 1 tab PO BID PRN Label Comments: TAKE 1 TABLET BY MOUTH TWICE DAILY NEEDED FOR PANIC ATTACKS buspirone 10 mg tablet 1 tab PO Q8H PRN hydroxyzine HCl 25 mg tablet 1 tab PO Q8H PRN Label Comments: TAKE 1 TABLET BY MOUTH EVERY 8 HOURS NEEDED FOR ANXIETY OR PANIC pregabalin 150 mg capsule 1 cap PO BID Label Comments: TAKE 1 CAPSULE BY MOUTH TWICE DAILY
--- NOTE | 2022-02-13 18:12 | DI.VRAD_ITS ---
PROCEDURE INFORMATION: Exam: XR Chest Exam date and time: 02/13/2022 5:22 PM Age: 41 years old Clinical indication: Device placement; Ett placement (vent status) TECHNIQUE: Imaging protocol: Radiologic exam of the chest. Views: 1 view. COMPARISON: CR XR PORTABLE CHEST AP 02/13/2022 4:05 PM FINDINGS: Tubes, catheters and devices: NG tube appears to enter the stomach. Airway: An endotracheal is well positioned with tip approximately 3.8 cm above the liv. Lungs: Diffuse bilateral airspace consolidation concerning for a severe bilateral pneumonitis. Differential diagnosis would include pulmonary edema. This is stable in appearance since an earlier x-ray at 4:05 p.m.. Pleural spaces: No pleural effusion evident. Heart/Mediastinum: Mild cardiac enlargement. No acute features. Bones/joints: Unremarkable. IMPRESSION: 1. Endotracheal tube is well positioned. 2. NG tube appears to enter the stomach appropriately. 3. Diffuse bilateral airspace disease consistent with a severe pneumonitis/ARDS or pulmonary edema. Dictated and Authenticated by: Angel Govea MD. Ordering:GLEN Winn MD
[2022-02-13] MEDS: VANCOMYCIN/WATER (PEG) 2 GM/400 ML BAG IVPB (18:25)
[2022-02-13] MEDS: PROPOFOL 1,000 MG/100 ML BTL 31.8 MG ×3 (18:32→22:53)
--- NOTE | 2022-02-13 18:36 | DI.VRAD_ITS ---
PROCEDURE INFORMATION: Exam: CT Head Without Contrast Exam date and time: 02/13/2022 6:07 PM Age: 41 years old Clinical indication: Other: AMS, seizure TECHNIQUE: Imaging protocol: Computed tomography of the head without contrast. Radiation optimization: All CT scans at this facility use at least one of these dose optimization techniques: automated exposure control; mA and/or kV adjustment per patient size (includes targeted exams where dose is matched to clinical indication); or iterative reconstruction. COMPARISON: No relevant prior studies available. FINDINGS: Tubes, catheters and devices: An NG tube is noted traversing the left nasal cavity. Brain: No intracranial hemorrhage. No large territory acute CVA. No mass. No edema. Low-attenuation focus measuring 9 x 7 mm in the right subinsular white matter. Likely a Virchow Chase perivascular space. Possibility of this being an old infarct with encephalomalacia should be considered as well. No prior imaging for comparison. Cerebral ventricles: No ventriculomegaly. Paranasal sinuses: Paranasal sinuses are clear. Mastoid air cells: Visualized mastoid air cells are well aerated. Bones/joints: Unremarkable. No acute fracture. Soft tissues: Unremarkable. IMPRESSION: 1. No acute intracranial pathology. 2. No hemorrhage, mass, edema, or large territory infarct. 3. NG tube traversing the left nares. 4. Low-attenuation region in the right subinsular white matter. See series 6, image 35 and coronal series 7, image 48. This is likely a prominent perivascular space or Virchow Chase space. Differential diagnosis would include an old small infarct bed with encephalomalacia. Dictated and Authenticated by: Angel Govea MD. Ordering:CHANNING Meadows MD
[2022-02-13 20:16] LABS: BE (Venous) -14 mmol/L (-2-3); HCO3 (Venous) 15 mmol/L (23-28); O2 Sat (Venous) 35 %; TCO2 (Venous) 15 mmol/L (24-29); pCO2 (Venous) 47 mmHg (41-51); pO2 (Venous) 26 mmHg
[2022-02-13 20:18] LABS: pH (Venous) 7.13 (7.31-7.41)
[2022-02-13] MEDS: Lactated Ringers 1,000 ML 150 ML IV (20:45)
== END 2022-02-13 23:50 | disposition short-term general hospital (02) ==
PROVIDERS: Physician Assistant; Registered Nurse Emergency; Emergency Provider Emergency Medicine; PCP Family Medicine
DX: E87.20 Acidosis, unspecified (principal); R09.02 Hypoxemia; R91.8 Other nonspecific abnormal finding of lung field; N17.9 Acute kidney failure, unspecified; E87.1 Hypo-osmolality and hyponatremia; R77.8 Other specified abnormalities of plasma proteins; R79.1 Abnormal coagulation profile; R79.89 Other specified abnormal findings of blood chemistry; R00.0 Tachycardia, unspecified; M54.50 Low back pain, unspecified; R41.82 Altered mental status, unspecified; R53.83 Other fatigue; D72.829 Elevated white blood cell count, unspecified; E78.5 Hyperlipidemia, unspecified; J45.909 Unspecified asthma, uncomplicated; E66.01 Morbid (severe) obesity due to excess calories; F17.290 Nicotine dependence, other tobacco product, uncomplicated; Z68.42 Body mass index [BMI] 45.0-49.9, adult
CPT/HCPCS: 31500; 36415; 80053; 80307; 81025; 82805; 87040; 87637; 93005; 96361; 96365; 96366; 96367; 96368; 99291; 99292; 36600; 70450; 71045; 81003; 81015; 83605; 83735; 83880; 84484; 85025; 85379; 85610; 85730; 93010; J1940; J2250; J2543; J2704

== ENCOUNTER 2024-03-11 14:42 | Emergency (ER) | payer MEDICAID, SELFPAY ==
[2024-03-11 14:50] VITALS: BP 135/82; PULSE 101; RESP 18; TEMP 36.5; O2SAT 98
--- NOTE | 2024-03-11 15:27 | W.ED.GENAD ---
Discharge Plan Discharge Details Chief Complaint: PsychEval Clinical Impression: Depression with suicidal ideation, Diabetes mellitus, Hypertension, Cocaine use disorder Primary Care Provider: None,None ED Provider: Umm Ngo Home Meds and New Rx's Prescriptions: No Action (DME) Asthma Check Meter 1 EACH device 1 ea Miscellaneous PRN albuterol sulfate [Proventil HFA] 1 PUFF HFA aerosol inhaler 1 puff Inhalation PRN PRN ondansetron 4 mg Tablet,Disintegrating 4 mg PO Q8H PRN aripiprazole 2 mg tablet 1 tab PO HS Patient Comments: TAKE 1 TABLET BY MOUTH AT BEDTIME sertraline 50 mg tablet 1 tab PO QAM lorazepam 1 mg tablet 1 tab PO BID PRN Patient Comments: TAKE 1 TABLET BY MOUTH TWICE DAILY NEEDED FOR PANIC ATTACKS buspirone 10 mg tablet 1 tab PO Q8H PRN hydroxyzine HCl 25 mg tablet 1 tab PO Q8H PRN Patient Comments: TAKE 1 TABLET BY MOUTH EVERY 8 HOURS NEEDED FOR ANXIETY OR PANIC pregabalin 150 mg capsule 1 cap PO TID Patient Comments: TAKE 1 CAPSULE BY MOUTH TWICE DAILY HPI General Mode of arrival: ambulatory. Date/Time Provider Initiated Documentation: 03/11/24 14:53. Limitations to Documentation: no limitations. Information obtained by: patient and old records reviewed. HPI Narrative: HPI: This is a 43-year-old female patient with a past medical history significant for diabetes, PCOS, asthma, crack cocaine use, and psychogenic seizures who is presenting for evaluation of suicidal ideation. The patient reports that after a year of sobriety she relapsed on crack cocaine, which she smokes. She reports that this morning, she gave her pipe to her roommate, and states that the roommate took photos and sent it to her children, and then told her she could not stay there anymore. She states that she did not have any other friends or family who would allow her to stay with them, states that she was going to call 211 but began to have worsening thoughts of suicide, stating that she wishes she had never woke up this morning, nor after the, that she experienced in 2021. She states that she thought about overdosing, thought about hanging herself under a bridge, states that she has not made any attempts to harm herself today. Has been taking her home medications as prescribed without any intentional overdose or misuse, did miss her morning dose today due to the events at her roommates house. The patient states that she has never been hospitalized for suicidal thoughts or feelings. She vapes nicotine but does not drink alcohol. No other illicit substance use reported. Status post tubal ligation. Exam: Gen: Awake and alert, tearful HEENT: Non-icteric sclera, PERRL Neck: Supple Lungs: No apparent respiratory distress, normal respiratory effort. CV: Appears well perfused, heart with regular rate and rhythm Abdomen: Non-distended MSK: Moves 4 extremities without apparent limitation in ROM Skin: Visualized skin without rashes, cyanosis. Neuro: Normal Gait, no obvious focal deficits or facial asymmetry. Speaks in full, clear sentences. Psych: Tearful, suicidal thoughts without intent or attempt. Linear thought process MDM: This is a 43-year-old female patient presenting for evaluation of suicidal ideation in the setting of being kicked out of her friend's home due to relapse of substance use. My differential includes but is not limited to primary psychiatric disturbance, I certainly considered intoxication and withdrawal syndrome. The patient has not had any medical complaints or recent illness, injury, or trauma. She has not made any attempts to harm herself, including cutting, overdose, etc. At this time, the patient is hemodynamically appropriate and she meets smart criteria for medical clearance. We will obtain a UA and [id number] screen, and will reach out to [facility] as well as the manager of disaster recovery. ED Course: The patient met with the manager of disaster recovery, and as well as the social media marketing manager who recommended inpatient level of psychiatric care. The patient is voluntary, and as she has been medically cleared was moved to zone B. Her home meds were ordered including as needed medications for anxiety. The patient was signed out to the oncoming provider prior to final placement, remained hemodynamically appropriate, calm, and comfortable while under my care. Umm Ngo MD Related Data Home Medications ?Medication ?Instructions ?Recorded ?Confirmed albuterol sulfate 90 mcg/actuation 1 puff inhalation PRN PRN 09/06/12 03/11/24 aerosol inhaler (Proventil HFA) peak flow meter (Asthma Check 09/26/12 03/11/24 Meter) aripiprazole 2 mg tablet 1 tab PO HS 02/13/22 03/11/24 buspirone 10 mg tablet 1 tab PO Q8H PRN 02/13/22 03/11/24 hydroxyzine HCl 25 mg tablet 1 tab PO Q8H PRN 02/13/22 03/11/24 lorazepam 1 mg tablet 1 tab PO BID PRN 02/13/22 03/11/24 ondansetron 4 mg disintegrating 4 mg PO Q8H PRN 02/13/22 03/11/24 tablet pregabalin 150 mg capsule 1 cap PO TID 02/13/22 03/11/24 sertraline 50 mg tablet 1 tab PO QAM 02/13/22 03/11/24 Allergies Allergy/AdvReac Type Severity Reaction Status Date / Time nut - unspecified (nut) Allergy Severe Anaphylaxsi Unverified 03/11/24 14:53 s hydrocortisone (From Allergy Intermediate RASH AND Unverified 03/11/24 14:53 Cortisporin) SWELLING latex Allergy Intermediate Hives Verified 03/11/24 14:53 montelukast sodium (From Allergy Intermediate Hives Verified 03/11/24 14:53 Singulair) neomycin (From Cortisporin) Allergy Intermediate RASH AND Verified 03/11/24 14:53 SWELLING neomycin sulfate (From Allergy Intermediate RASH AND Verified 03/11/24 14:53 Cortisporin) SWELLING polymyxin B (From Allergy Intermediate RASH AND Verified 03/11/24 14:53 Cortisporin) SWELLING zafirlukast (Zafirlukast) Allergy Intermediate HIVES/SWELL Verified 03/11/24 14:53 ING bacitracin (From Neosporin Allergy Mild Hives Verified 03/11/24 14:53 Plus) bacitracin zinc (From Allergy Mild Hives Verified 03/11/24 14:53 Neosporin Plus) polymyxin B sulfate (From Allergy Mild Hives Verified 03/11/24 14:53 Neosporin Plus) meperidine HCl (From Demerol) AdvReac Intermediate hypotension Verified 03/11/24 14:53 pantoprazole sodium (From AdvReac Intermediate decreases Unverified 03/11/24 14:53 Protonix) potassium level almonds Allergy Severe Anaphylaxsi Uncoded 03/11/24 14:53 s General Stated Complaint: PsychEval DONNA: 2 Course Vital Signs Vital signs: Vital Signs Temperature 36.5 C 03/11/24 14:50 Pulse 101 H 03/11/24 14:50 Respiratory Rate 18 03/11/24 14:50 Blood Pressure 135/82 03/11/24 14:50 Pulse Oximetry 98 03/11/24 14:50 Temperature 36.5 C 03/11/24 14:50 Pulse 101 H 03/11/24 14:50 Respiratory Rate 18 03/11/24 14:50 Blood Pressure 135/82 03/11/24 14:50 Pulse Oximetry 98 03/11/24 14:50 Pain Level 0 03/11/24 14:50 Medical Decision Making Quality:SDOH Health Related Social Needs: Health related social needs housing instability, housed, with risk of homelessness(Z59.811) PFSH All Active Problems (Updated 03/11/24 @ 22:29 by Umm Ngo MD) Cocaine use disorder (Acute) Depression with suicidal ideation (Acute) Acute appendicitis (Acute) Hypertension (Chronic) Diabetes mellitus (Chronic) Pain, abdominal, RUQ (Acute) Medical History Asthma Barretts esophagus Depression Hyperlipidemia Morbid obesity with BMI of 45.0-49.9, adult PCOS (polycystic ovarian syndrome) Right knee pain Tension headache Vitamin D deficiency Surgical History Appendectomy (06/12/16) Arthroplasty of knee right 2015 Cholecystectomy Colonoscopy - IV Sedation 2012 EGD - IV Sedation 2011 Ligation of fallopian tube Repair of umbilical hernia at 7 years old Social History Smoking/Tobacco Use Status: Current every day Tobacco Type: e-cigarettes and smokeless tobacco Smoking risk assessment performed?: Yes Alcohol Intake: never Drug use: Never Substance use type: does not use Do you feel safe at home: Yes Do you feel safe in your relationship?: Yes History History Para 2 Hx # Term Pregnancies Multiple births Hx # Pregnancies Ectopic pregnancies AB induced Hx Number of Living Children AB spontaneous
--- NOTE | 2024-03-11 16:25 | PDOC.MHCN_ITS ---
Date of service: 03/11/24 Time of Service: 03:30 PHQ-9 Over the last 2 weeks, how often have you been bothered by any of the following problems? 1. Little interest or pleasure in doing things: several days 2. Feeling down, depressed, or hopeless: nearly every day 3. Trouble falling or staying asleep, or sleeping too much: more than half the days 4. Feeling tired or having little energy: several days 5. Poor appetite or overeating: more than half the days 6. Feeling bad about yourself - or that you are a failure or have let yourself and your family down: nearly every day 7. Trouble concentrating on things, such as reading the newspaper or watching television: several days 8. Moving or speaking so slowly that other people could have noticed? - Or the opposite - being so fidgety or restless that you have been moving around a lot more than usual: several days 9. Thoughts that you would be better off or of hurting yourself in some way: more than half the days Total score: 16 Source: Developed by Drs. Pa Myers, Deb Mcmahon, Julian Bearden and colleagues, with an educational michael from [facility]. Suicide Severity Rate CSSRS2 Have you been thinking about how you might do this?: Yes Have you had these thoughts and had some intention of acting on them?: Yes Have you started to work out or worked out the details of how to kill yourself? Do you intend to carry out this plan?: No CSSRS3 Have you ever done anything, started to do anything or prepared to do anything to end your life?: Yes CSSRS4 Was this within the past three months?: No Screening Score Total Score: 2 Screening: Positive Mental Health Emergency Note Release [facility] release signed:: No Reason for Visit Patient experiencing major depression with substance(crack) use addiction In the last 2 weeks has the pt presented for ES prior to today?: No Client Information Client is: New Well Housed: No,status: Not homeless, Unstable housing Non Suicidal Self Injury Current: No History: No Safety Risk/Harm to Self or Others Current Ideation to Harm Self or Others: Yes to self. Intent: yes, has intent. Plan: yes,has a plan. Risk: Does risk to harm exist?: yes. Risk: High Risk Duty to chacha indicated: No Asssessment/Mental Status Appearance: Other Attitude: Cooperative Behavior: Unremarkable Speech: Soft and Slow Affect: Cogruent with mood Mood: Sad, Depressed and Anxious Thought process: Flight of ideas Hallucinations: No Delusions: No Attention: Unremarkable Perception: Not impaired Orientation: Fully orientated Memory: Intact Insight: Poor Judgement: Poor Neurovegetative Symptoms Sleep: Decrease Appetitie: Disordered Interests: Decrease Energy: Decrease Libido: Not applicable Substance Use: Other Drug Issues: Dependence and Impaired Do you use nicotine?: No Have you used substances in the last 7 days?: yes, current Additional Issues: Assaultive/Threatening Behavior: No Medical Concerns: No Client engaged in active self harm w/weapon: No Threatening to run away: No Child reported abuse/neglect: No Voluntarily presenting for services: Yes Domestic violence is a concern: No Extreme Psychosis or extreme behavior is present: No Impression highly depressed female who has children and grand children but most family won't engage with her due to drug use. She is currently suicidal with means and intent. [facility] and given[facility] [id number] Plan/Disposition Recommended Disposition: Hospitalization No. Plan: Patient will be seen by [facility] assistant womens volleyball coach today. she will await gong inpatient when a bed is available for treatment of her suicidal ideation, depression,and drug addiction. Facilities contacted if Applicable [facility] Not accepted, No bed available [facility] Not accepted, No bed available, [facility] Not accepted, No bed available Reports/communication Outcome discussed with: ED/Personnel
[2024-03-11] MEDS: ARIPiprazole 2 MG TAB PO (21:27)
[2024-03-11] MEDS: Apixaban 2.5 MG TAB PO ×2 (21:27)
[2024-03-11] MEDS: levETIRAcetam 500 MG TAB PO (21:28)
[2024-03-11] MEDS: Pregabalin 150 MG CAP PO (21:30)
[2024-03-11] MEDS: hydrOXYzine HCL 25 MG TAB PO (21:32)
[2024-03-11] MEDS: LORazepam 1 MG TAB PO (22:27)
[2024-03-12 12:05] VITALS: BP 122/89; PULSE 83; RESP 16; TEMP 36.2; O2SAT 94
[2024-03-12] MEDS: levETIRAcetam 500 MG TAB PO ×3 (12:10→20:01)
[2024-03-12] MEDS: Apixaban 2.5 MG TAB PO ×2 (12:10→20:01)
[2024-03-12] MEDS: Pregabalin 150 MG CAP PO ×3 (12:11→20:02)
[2024-03-12] MEDS: Sertraline 50 MG TAB PO (12:11)
--- NOTE | 2024-03-12 16:32 | W.EDPROG ---
Date of service: 03/12/24 Time of Service: 16:33 Medical Decision Making Care was signed out by Dr. Ramirez this morning. Please see his documentation regarding prior ED course. Plan at signout was to await voluntary psychiatric treatment facility placement. Patient medically screened at time of signout. No concerns today. Patient slept through most of the morning. Still awaiting placement. Quality:SDOH Health Related Social Needs: Health related social needs housing instability, housed, with risk of homelessness(Z59.811) Discharge Plan Discharge Details Chief Complaint: PsychEval Clinical Impression: Depression with suicidal ideation, Diabetes mellitus, Hypertension, Cocaine use disorder Primary Care Provider: None,None ED Provider: Lanre Najera [place] Meds and New Rx's Prescriptions: No Action (DME) Asthma Check Meter 1 EACH device 1 ea Miscellaneous PRN albuterol sulfate [Proventil HFA] 1 PUFF HFA aerosol inhaler 1 puff Inhalation PRN PRN ondansetron 4 mg Tablet,Disintegrating 4 mg PO Q8H PRN aripiprazole 2 mg tablet 1 tab PO HS Patient Comments: TAKE 1 TABLET BY MOUTH AT BEDTIME sertraline 50 mg tablet 1 tab PO QAM lorazepam 1 mg tablet 1 tab PO BID PRN Patient Comments: TAKE 1 TABLET BY MOUTH TWICE DAILY NEEDED FOR PANIC ATTACKS buspirone 10 mg tablet 1 tab PO Q8H PRN hydroxyzine HCl 25 mg tablet 1 tab PO Q8H PRN Patient Comments: TAKE 1 TABLET BY MOUTH EVERY 8 HOURS NEEDED FOR ANXIETY OR PANIC pregabalin 150 mg capsule 1 cap PO TID Patient Comments: TAKE 1 CAPSULE BY MOUTH TWICE DAILY
--- NOTE | 2024-03-12 17:49 | ED.PROG_ITS ---
Date of service: 03/12/24 Time of Service: 16:00 Medical Decision Making In brief, this is a 43-year-old female patient who is boarding in our emergency department awaiting inpatient psychiatric placement for suicidal ideation in the setting of a recent relapse on crack cocaine. In our department the patient has been medically cleared, has been resting comfortably and has been taking her home meds without incident. She has not required any acute interventions for sedation or restraint. Signed out at the end of my shift to the oncoming provider prior to final placement/disposition. Remains voluntary. Umm Ngo MD Medical Records Medical records reviewed: Yes I reviewed the patient's medical records. Lab Data Lab results reviewed: Yes I reviewed the patient's lab results. Quality:SDOH Health Related Social Needs: Health related social needs housing instability, house d, with risk of homelessness(Z59.811) Discharge Plan Discharge Details Chief Complaint: PsychEval Clinical Impression: Depression with suicidal ideation, Diabetes mellitus, Hypertension, Cocaine use disorder Primary Care Provider: None,None ED Provider: Umm Ngo Home Meds and New Rx's Prescriptions: No Action (DME) Asthma Check Meter 1 EACH device 1 ea Miscellaneous PRN albuterol sulfate [Proventil HFA] 1 PUFF HFA aerosol inhaler 1 puff Inhalation PRN PRN ondansetron 4 mg Tablet,Disintegrating 4 mg PO Q8H PRN aripiprazole 2 mg tablet 1 tab PO HS Patient Comments: TAKE 1 TABLET BY MOUTH AT BEDTIME sertraline 50 mg tablet 1 tab PO QAM lorazepam 1 mg tablet 1 tab PO BID PRN Patient Comments: TAKE 1 TABLET BY MOUTH TWICE DAILY NEEDED FOR PANIC ATTACKS buspirone 10 mg tablet 1 tab PO Q8H PRN hydroxyzine HCl 25 mg tablet 1 tab PO Q8H PRN Patient Comments: TAKE 1 TABLET BY MOUTH EVERY 8 HOURS NEEDED FOR ANXIETY OR PANIC pregabalin 150 mg capsule 1 cap PO TID Patient Comments: TAKE 1 CAPSULE BY MOUTH TWICE DAILY
--- NOTE | 2024-03-12 17:58 | PDOC.CMSAFE ---
Date of service: 03/12/24 Time of Service: 17:58 Care Management Safety Plan Status Status: Voluntary Reason for Wait Reason for Wait: Inpatient Admission Safety Plan Safety Plan: VOLUNTARY FOR INPATIENT PSYCHIATRIC STABILIZATION.? Patient is appropriate in all interactions since arriving at [facility]; Pt has demonstrated appropriate coping and communication skills, has articulated her needs and concerns and is fully engaged during staff interactions. Safety plan has been established with patient, and care team, to adhere to patient goals, identify restrictions based on behavioral status, address nutrition, and determine allowed personal belongings, tools for hygiene and personal care. Determine level of activity including ambulation, level of supervision, visitors, and determine privileges based on behaviors and level of engagement by pt. VOLUNTARY SAFETY PLAN: 1. Will remain on suicide precautions, in paper clothes 2. Will remain in Zone B under direct supervision of one-on-one staff at all times provided by [employer]; DARNELL, CAR COUPLER coremaker. 3. May have paper cups, plates, finger foods as well as a cardboard spoon with which to eat meals. 4. Follow [facility] Management of the Admitted Behavioral Health Patient policy. 5. Shower available in Zone B without restriction. 6. Personal belongings-soft items permitted at RN discretion. 7. Visitors-none at this time. 8. Activities: soft cart items approved per RN discretion. 9.? Bathroom available in Zone B without restriction. 10. Phone: limited to [facility] cordless phone at RN discretion. Due to VOLUNTARY status, if patient wishes to leave [facility], staff will contact [facility] Crisis Screener ([phone]) and Graphic Engineer ([phone]) as soon as possible. In the event of elopement, notify [facility] Police ([phone]).
[2024-03-12] MEDS: LORazepam 1 MG TAB PO ×2 (20:02→23:31)
[2024-03-12] MEDS: ARIPiprazole 2 MG TAB PO (20:02)
[2024-03-13 00:02] LABS: Bilirubin Negative (Negative); Blood Negative (Negative); Clarity Sl Cloudy (Clear); Glucose Negative (Negative); Ketones Negative (Negative); Leukocyte Esterase Small (Negative); Nitrite Negative (Negative); Specific Gravity >= 1.030 (1.005-1.025); Urobilinogen 0.2 mg/dL (Up to 0.2)
[2024-03-13 00:12] LABS: Bacteria Moderate HPF (Negative); C & S Indicated? Yes; Casts Negative LPF (Negative); Crystals Negative HPF (Negative); Epithelial Cells Few HPF (Negative); Mucus Trace (Negative); RBC 0-2 HPF (0-2); WBC >50 HPF (0-5)
[2024-03-13 00:15] LABS: *AMPHETAMINES SCREEN URINE Negative (Negative); *BARBITURATES SCREEN URINE Negative (Negative); *BENZODIAZEPINES SCREEN URINE Negative (Negative); Cannabinoids THC Negative (Negative); Cocaine Screen,Urine Positive (Negative); METHADONE URINE SCREEN Negative (Negative); OPIATES URINE SCREEN Negative (Negative)
[2024-03-13 00:18] LABS: Tricyclic Antidepressants Negative (Negative)
[2024-03-13] MEDS: hydrOXYzine HCL 25 MG TAB PO (02:24)
--- NOTE | 2024-03-13 07:10 | ED.PROG_ITS ---
Date of service: 03/13/24 Time of Service: 07:10 Medical Decision Making Patient remains in ED pending voluntary inpatient psychiatric admission. Overnight urinalysis and urine drug screen sent. Urinalysis does appear infected with white cells and bacteria present. She is ordered for a single dose of fosfomycin. Urine drug screen positive for cocaine only which she had already reported. Otherwise no issues overnight. Signed out to oncoming ED physician. Quality:SDOH Health Related Social Needs: Health related social needs housing instability, house d, with risk of homelessness(Z59.811) Discharge Plan Discharge Details Chief Complaint: PsychEval Clinical Impression: Depression with suicidal ideation, Diabetes mellitus, Hypertension, Cocaine use disorder Primary Care Provider: None,None ED Provider: Pa Ramirez [place] [facility] and New Rx's Prescriptions: No Action (DME) Asthma Check Meter 1 EACH device 1 ea Miscellaneous PRN albuterol sulfate [Proventil HFA] 1 PUFF HFA aerosol inhaler 1 puff Inhalation PRN PRN ondansetron 4 mg Tablet,Disintegrating 4 mg PO Q8H PRN aripiprazole 2 mg tablet 1 tab PO HS Patient Comments: TAKE 1 TABLET BY MOUTH AT BEDTIME sertraline 50 mg tablet 1 tab PO QAM lorazepam 1 mg tablet 1 tab PO BID PRN Patient Comments: TAKE 1 TABLET BY MOUTH TWICE DAILY NEEDED FOR PANIC ATTACKS buspirone 10 mg tablet 1 tab PO Q8H PRN hydroxyzine HCl 25 mg tablet 1 tab PO Q8H PRN Patient Comments: TAKE 1 TABLET BY MOUTH EVERY 8 HOURS NEEDED FOR ANXIETY OR PANIC pregabalin 150 mg capsule 1 cap PO TID Patient Comments: TAKE 1 CAPSULE BY MOUTH TWICE DAILY
[2024-03-13 08:11] VITALS: BP 97/63; PULSE 63; RESP 17; TEMP 36.7; O2SAT 96
[2024-03-13] MEDS: Fosfomycin Tromethamine 3 GM PACKET PO (09:22)
[2024-03-13] MEDS: Apixaban 2.5 MG TAB PO ×2 (09:23→20:01)
[2024-03-13] MEDS: Pregabalin 150 MG CAP PO ×3 (09:23→20:02)
[2024-03-13] MEDS: levETIRAcetam 500 MG TAB PO ×2 (09:23→20:02)
[2024-03-13] MEDS: Sertraline 50 MG TAB PO (09:25)
--- NOTE | 2024-03-13 10:21 | PDOC.MHCN_ITS ---
Date of service: 03/12/24 Time of Service: 18:00 Mental Health Emergency Note Release [facility] release signed:: Yes Reason for Visit Reassessment. Client is stating 10/10 SI with intention to hang herself. In the last 2 weeks has the pt presented for ES prior to today?: No Client Information Client is: Adult Outpatient Well Housed: No,status: Homeless Non Suicidal Self Injury Current: Yes, Client rates herself at 10/10. History: yes, With intent to hang herself. Safety Risk/Harm to Self or Others Current Ideation to Harm Self or Others: Yes to self. Intent: yes, has intent. Plan: yes,has a plan. Risk: Does risk to harm exist?: yes. Risk: High Risk Asssessment/Mental Status Appearance: Disheveled Attitude: Cooperative Behavior: Unremarkable Speech: Normal Impression Client shared that she has been kicked out of her housing and with everything going on she rates her SI 10/10 with a plan to hang herself. Client shared that after she gets the mental help she needs, she will call 211 for housing assistance. Resources [facility] reviewed and given:: [facility] Plan/Disposition Recommended Disposition: Hospitalization facilities contacted. Plan: As this is a reassessment, referrals have already been sent out to facilities. Client is to wait in Zone B until placement. Person reported agreement to plan: Yes Facilities contacted if Applicable [facility] Not accepted, Other [facility] Not accepted, Other [facility] Not accepted, Other, [facility] Not accepted, Other [facility] Not accepted, Other Reports/communication Outcome discussed with: ED/Personnel
--- NOTE | 2024-03-13 14:45 | PDOC.CMSAFE ---
Date of service: 03/13/24 Time of Service: 14:45 Care Management Safety Plan Status Status: Voluntary Reason for Wait Reason for Wait: Inpatient Admission Safety Plan Safety Plan: VOLUNTARY FOR INPATIENT PSYCHIATRIC STABILIZATION.? Patient is appropriate in all interactions since arriving at [facility]; Pt has demonstrated appropriate coping and communication skills, has articulated her needs and concerns and is fully engaged during staff interactions. Safety plan has been established with patient, and care team, to adhere to patient goals, identify restrictions based on behavioral status, address nutrition, and determine allowed personal belongings, tools for hygiene and personal care. Determine level of activity including ambulation, level of supervision, visitors, and determine privileges based on behaviors and level of engagement by pt. VOLUNTARY SAFETY PLAN: 1. Will remain on suicide precautions, in paper clothes 2. Will remain in Zone B under direct supervision of one-on-one staff at all times provided by [employer]; DARNELL, TRACK MECHANIC accountancy professor. 3. May have paper cups, plates, finger foods as well as a cardboard spoon with which to eat meals. 4. Follow [facility] Management of the Admitted Behavioral Health Patient policy. 5. Shower available in Zone B without restriction. 6. Personal belongings-soft items permitted at RN discretion. 7. Visitors-none at this time; at RN discretion. 8. Activities: soft cart items approved per RN discretion. 9.? Bathroom available in Zone B without restriction. 10. Phone: limited to [facility] cordless phone at RN discretion. Due to VOLUNTARY status, if patient wishes to leave [facility], staff will contact [facility] Crisis Screener ([phone]) and Pool Table Operator ([phone]) as soon as possible. In the event of elopement, notify [facility] Police ([phone]).
--- NOTE | 2024-03-13 15:28 | PDOC.MHPN2 ---
Date of service: 03/13/24 Time of Service: 15:29 PHQ-9 Over the last 2 weeks, how often have you been bothered by any of the following problems? 1. Little interest or pleasure in doing things: more than half the days 2. Feeling down, depressed, or hopeless: nearly every day 3. Trouble falling or staying asleep, or sleeping too much: several days 4. Feeling tired or having little energy: several days 5. Poor appetite or overeating: several days 6. Feeling bad about yourself - or that you are a failure or have let yourself and your family down: more than half the days 7. Trouble concentrating on things, such as reading the newspaper or watching television: not at all 8. Moving or speaking so slowly that other people could have noticed? - Or the opposite - being so fidgety or restless that you have been moving around a lot more than usual: not at all 9. Thoughts that you would be better off or of hurting yourself in some way: several days Total score: 11 Source: Developed by Drs. Pa Myers, Deb Mcmahon, Julian Bearden and colleagues, with an educational michael from [employer]. Suicide Severity Rate CSSRS Have you wished you were or wished you could go to sleep and not wake up?: Yes Have you actually had any thoughts of killing yourself?: Yes CSSRS2 Have you been thinking about how you might do this?: No Have you had these thoughts and had some intention of acting on them?: Yes Have you started to work out or worked out the details of how to kill yourself? Do you intend to carry out this plan?: No CSSRS3 Have you ever done anything, started to do anything or prepared to do anything to end your life?: Yes CSSRS4 Was this within the past three months?: No Screening Score Total Score: 6 Screening: Positive Mental Health Emergency Note Release [facility] release signed:: Yes Reason for Visit Reassessment of patient due to continued stay at [facility] awaiting inpatient due to SI and substance use In the last 2 weeks has the pt presented for ES prior to today?: No Client Information Client is: New Well Housed: No,status: Homeless Stable housing Non Suicidal Self Injury Current: No History: No Safety Risk/Harm to Self or Others Current Ideation to Harm Self or Others: Yes to self. Intent: yes, has intent. Plan: no.does not have a plan. Risk: Does risk to harm exist?: yes. Risk: High Risk Duty to warn indicated: No Asssessment/Mental Status Appearance: Other Attitude: Cooperative Behavior: Unremarkable Speech: Soft and Slow Affect: Cogruent with mood Mood: Sad and Depressed Thought process: Poverty of content Hallucinations: No Delusions: No Attention: Poor concentration Perception: Not impaired Orientation: Fully orientated Memory: Intact Insight: Poor Judgement: Poor Neurovegetative Symptoms Sleep: Decrease Appetitie: Decrease Interests: Decrease Energy: Decrease Libido: Not applicable Substance Use: Other Drug Issues: Dependence Do you use nicotine?: No Have you used substances in the last 7 days?: yes, as soon as possible Additional Issues: Assaultive/Threatening Behavior: No Medical Concerns: Yes Client engaged in active self harm w/weapon: No Threatening to run away: No Child reported abuse/neglect: No Voluntarily presenting for services: Yes Domestic violence is a concern: No Extreme Psychosis or extreme behavior is present: No Impression Patient is clearly still suicidal, depressed, and has addiction issues. Resources Reosurces reviewed and given:: 8 and [facility] Plan/Disposition Recommended Disposition: Hospitalization facilities contacted. Plan: Awaiting a bed for inpatient Facilities contacted if Applicable [facility] Not accepted, No bed available Reports/communication Outcome discussed with: ED/Personnel and Other
--- NOTE | 2024-03-13 15:43 | PDOC.CMPRO ---
Date of service: 03/13/24 Time of Service: 15:43 Care Management Progress Note Progress Note Text Progress Note Text: CM met with staff to discuss Yoselin's plan of care. Per STRUCTURAL ENGINEER, she has been sleeping most of the day, and reportedly slept a lot yesterday as well. Per [facility], Yoselin is agreeable to going to the LGBTQ unit at [facility], which their admissions department called and inquired about today. Yoselin is voluntary for inpatient psychiatric admission, awaiting a bed offer. Safety plan in place; no changes to plan today. SDOH(Care Management) Screening Will the Patient Participate in the Screening?: Yes Do you worry about having a steady place to live?: yes In the past 12 months, have you had to go without electric, gas, oil or water in your home?: no Have you or anyone in your house had to go without enough food to eat?: no Has lack of transportation kept you from medical appointments or from doing things needed for daily living?: no Has anyone in your support network made you feel unsafe for any reason?: no Social Determinants of Health Comments(SDOH Details): pt was evicted this am Health Related Social Needs Health related social needs: housing instability, housed, with risk of homelessness(Z59.811)
--- NOTE | 2024-03-13 18:06 | ED.PROG_ITS ---
Date of service: 03/13/24 Time of Service: 18:06 Medical Decision Making Care assumed from outgoing provider. Patient is a 43-year-old female with suicidal ideation pending voluntary inpatient psychiatric placement. Quality:SDME Health Related Social Needs: Health related social needs housing instability, house d, with risk of homelessness(Z59.811) Discharge Plan Discharge Details Chief Complaint: PsychEval Clinical Impression: Depression with suicidal ideation, Diabetes mellitus, Hypertension, Cocaine use disorder Primary Care Provider: None,None ED Provider: Jailene Cain Home Meds and New Rx's Prescriptions: No Action (DME) Asthma Check Meter 1 EACH device 1 ea Miscellaneous PRN albuterol sulfate [Proventil HFA] 1 PUFF HFA aerosol inhaler 1 puff Inhalation PRN PRN ondansetron 4 mg Tablet,Disintegrating 4 mg PO Q8H PRN aripiprazole 2 mg tablet 1 tab PO HS Patient Comments: TAKE 1 TABLET BY MOUTH AT BEDTIME sertraline 50 mg tablet 1 tab PO QAM lorazepam 1 mg tablet 1 tab PO BID PRN Patient Comments: TAKE 1 TABLET BY MOUTH TWICE DAILY NEEDED FOR PANIC ATTACKS buspirone 10 mg tablet 1 tab PO Q8H PRN hydroxyzine HCl 25 mg tablet 1 tab PO Q8H PRN Patient Comments: TAKE 1 TABLET BY MOUTH EVERY 8 HOURS NEEDED FOR ANXIETY OR PANIC pregabalin 150 mg capsule 1 cap PO TID Patient Comments: TAKE 1 CAPSULE BY MOUTH TWICE DAILY
[2024-03-13] MEDS: ARIPiprazole 2 MG TAB PO (20:01)
[2024-03-13] MEDS: LORazepam 1 MG TAB PO ×2 (20:01→23:31)
--- NOTE | 2024-03-14 07:48 | W.EDPROG ---
Date of service: 03/14/24 Time of Service: 07:48 Medical Decision Making Patient seeking voluntary placement for thoughts of self-harm, no issues reported on prior shift and no new acute complaints. Will continue to monitor until safe disposition found. Quality:SDIN Health Related Social Needs: No Data to Display Discharge Plan Discharge Details Chief Complaint: PsychEval Clinical Impression: Depression with suicidal ideation, Diabetes mellitus, Hypertension, Cocaine use disorder Primary Care Provider: None,None ED Provider: Geovanni Ledesma Home Meds and New Rx's Prescriptions: No Action (DME) Asthma Check Meter 1 EACH device 1 ea Miscellaneous PRN albuterol sulfate [Proventil HFA] 1 PUFF HFA aerosol inhaler 1 puff Inhalation PRN PRN ondansetron 4 mg Tablet,Disintegrating 4 mg PO Q8H PRN aripiprazole 2 mg tablet 1 tab PO HS Patient Comments: TAKE 1 TABLET BY MOUTH AT BEDTIME sertraline 50 mg tablet 1 tab PO QAM lorazepam 1 mg tablet 1 tab PO BID PRN Patient Comments: TAKE 1 TABLET BY MOUTH TWICE DAILY NEEDED FOR PANIC ATTACKS buspirone 10 mg tablet 1 tab PO Q8H PRN hydroxyzine HCl 25 mg tablet 1 tab PO Q8H PRN Patient Comments: TAKE 1 TABLET BY MOUTH EVERY 8 HOURS NEEDED FOR ANXIETY OR PANIC pregabalin 150 mg capsule 1 cap PO TID Patient Comments: TAKE 1 CAPSULE BY MOUTH TWICE DAILY
[2024-03-14] MEDS: levETIRAcetam 500 MG TAB PO ×2 (08:48→20:04)
[2024-03-14] MEDS: Sertraline 50 MG TAB PO (08:49)
[2024-03-14] MEDS: Apixaban 2.5 MG TAB PO ×2 (08:49→20:04)
[2024-03-14] MEDS: Pregabalin 150 MG CAP PO ×3 (08:49→20:04)
[2024-03-14 08:54] VITALS: BP 128/77; PULSE 65; RESP 22; TEMP 36.7; O2SAT 98
--- NOTE | 2024-03-14 08:56 | NUR.NOTE ---
Nursing Note: This expert medical writer received a call from Vianney who identified herself as the daughter of the patient, looking for an update. This expert medical writer received verbal consent do disclose information. This expert medical writer informed daughter pt had a uneventful night and the plan is for the patient to go to [facility], located in [place], [place] left phone number before ending call [phone]. Informed pt on conversation.
--- NOTE | 2024-03-14 13:55 | PDOC.MHPN2 ---
Date of service: 03/14/24 Time of Service: 11:50 PHQ-9 Over the last 2 weeks, how often have you been bothered by any of the following problems? 1. Little interest or pleasure in doing things: more than half the days 2. Feeling down, depressed, or hopeless: more than half the days 3. Trouble falling or staying asleep, or sleeping too much: more than half the days 4. Feeling tired or having little energy: several days 5. Poor appetite or overeating: several days 6. Feeling bad about yourself - or that you are a failure or have let yourself and your family down: more than half the days 7. Trouble concentrating on things, such as reading the newspaper or watching television: not at all 8. Moving or speaking so slowly that other people could have noticed? - Or the opposite - being so fidgety or restless that you have been moving around a lot more than usual: not at all 9. Thoughts that you would be better off or of hurting yourself in some way: more than half the days Total score: 12 Source: Developed by Drs. Pa Myers, Deb Mcmahon, Julian Bearden and colleagues, with an educational michael from [employer]. Suicide Severity Rate CSSRS Have you wished you were or wished you could go to sleep and not wake up?: Yes Have you actually had any thoughts of killing yourself?: Yes CSSRS2 Have you been thinking about how you might do this?: Yes Have you had these thoughts and had some intention of acting on them?: Yes Have you started to work out or worked out the details of how to kill yourself? Do you intend to carry out this plan?: No CSSRS3 Have you ever done anything, started to do anything or prepared to do anything to end your life?: Yes CSSRS4 Was this within the past three months?: No Screening Score Total Score: 6 Screening: Positive Mental Health Emergency Note Release [facility] release signed:: Yes Reason for Visit patient suffers from Crack addiction and is currently suicidal In the last 2 weeks has the pt presented for ES prior to today?: No Client Information Client is: New Well Housed: No,status: Homeless Non Suicidal Self Injury Current: No History: No Safety Risk/Harm to Self or Others Current Ideation to Harm Self or Others: Yes to self. Intent: yes, has intent. Plan: yes,has a plan. History of suicide attempt: yes,history of suicide attempt reported. Details of previous suicide attempt: took many pills about 10 years ago but fell asleep and woke up Risk: Does risk to harm exist?: yes. Risk: High Risk Duty to warn indicated: No Asssessment/Mental Status Appearance: Other Attitude: Cooperative Behavior: Other Speech: Soft and Slow Affect: Cogruent with mood Mood: Sad and Depressed Thought process: Goal directed Hallucinations: No Delusions: No Attention: Unremarkable Perception: Not impaired Orientation: Fully orientated Memory: Intact Insight: Poor Judgement: Poor Neurovegetative Symptoms Sleep: No change Appetitie: Disordered Interests: Decrease Energy: Decrease Libido: Not applicable Substance Use: Other Drug Issues: Dependence Do you use nicotine?: No Have you used substances in the last 7 days?: yes, currently Additional Issues: Assaultive/Threatening Behavior: Yes Medical Concerns: No Client engaged in active self harm w/weapon: No Threatening to run away: No Child reported abuse/neglect: No Voluntarily presenting for services: Yes Domestic violence is a concern: No Extreme Psychosis or extreme behavior is present: No Impression This client is currently taking a bed at [facility] awaiting to go inpatient as soon as a bed opens up Resources Iain reviewed and given:: [id number] and [facility] Plan/Disposition Recommended Disposition: [facility] Services [facility] Services: Therapy and Hospitalization facilities contacted. Plan: Client will await a bed opening up and will then leave [facility] Person reported agreement to plan: Yes Facilities contacted if Applicable [facility] Not accepted, No bed available, [facility] Not accepted, (awaiting a bed to open up for treatment) Other Other: Other ([facility]) not accepted No bed available Reports/communication Outcome discussed with: PCP/Personnel
--- NOTE | 2024-03-14 15:11 | PDOC.CMSAFE ---
Date of service: 03/14/24 Time of Service: 15:12 Care Management Safety Plan Status Status: Voluntary Reason for Wait Reason for Wait: Inpatient Admission Safety Plan Safety Plan: VOLUNTARY FOR INPATIENT PSYCHIATRIC STABILIZATION.? Patient is appropriate in all interactions since arriving at [facility]; Pt has demonstrated appropriate coping and communication skills, has articulated her needs and concerns and is fully engaged during staff interactions. Safety plan has been established with patient, and care team, to adhere to patient goals, identify restrictions based on behavioral status, address nutrition, and determine allowed personal belongings, tools for hygiene and personal care. Determine level of activity including ambulation, level of supervision, visitors, and determine privileges based on behaviors and level of engagement by pt. VOLUNTARY SAFETY PLAN: 1. Will remain on suicide precautions, in paper clothes 2. Will remain in Zone B under direct supervision of one-on-one staff at all times provided by [employer]; DARNELL, PROP WORKER profile mill operator tape control. 3. May have paper cups, plates, finger foods as well as a cardboard spoon with which to eat meals. 4. Follow [facility] Management of the Admitted Behavioral Health Patient policy. 5. Shower available in Zone B without restriction. 6. Personal belongings-soft items permitted at RN discretion. 7. Visitors-none at this time; at RN discretion. 8. Activities: soft cart items approved per RN discretion. 9.? Bathroom available in Zone B without restriction. 10. Phone: limited to [facility] cordless phone at RN discretion. Due to VOLUNTARY status, if patient wishes to leave [facility], staff will contact [facility] Crisis Screener ([phone]) and Bulb Farmworker ([phone]) as soon as possible. In the event of elopement, notify [facility] Police ([phone]).
--- NOTE | 2024-03-14 15:12 | CMPROGNOTE_ITS ---
Date of service: 03/14/24 Time of Service: 15:12 Care Management Progress Note Progress Note Text Progress Note Text: Per [facility], Yoselin continues to meet criteria for inpatient psychiatric treatment. Unfortunately, there are no beds available today at [facility], [facility], or [facility]. Per RN, Yoselin has been appropriate in interactions. She had a brief phone call with her today, which appeared to go well. Yoselin is voluntary, awaiting inpatient psychiatric treatment, pending bed availability. No changes to safety plan today; CM will continue to follow. Social Determinants of Health Screening Social Determinants of Health last assessed: 03/14/24 Will the Patient Participate in the Screening?: Yes Do you worry about having a steady place to live?: yes What is your living situation today?: I do not have steady housing Problems where you live: other (currently unhoused) In the past 12 months, have you had to go without electric, gas, oil or water in your home?: no Have you or anyone in your house had to go without enough food to eat?: no Has lack of transportation kept you from medical appointments or from doing things needed for daily living?: no Has anyone in your life made you feel unsafe or unsupported?: no How hard is it for you to pay for the very basics like food, housing, medical care, and heating? Would you say it is:: Very hard Do you want help finding or keeping work or a job?: I do not need or want help (currently awaiting psychiatric treatment) If for any reason you need help with day-to-day activities such as bathing, preparing meals, shopping, managing finances, etc., do you get the help you need?: I don?t need any help How often do you feel lonely or isolated from those around you?: Often Do you speak a language other than Fijian at home?: No Does the patient want assistance with any of the above?: No Social Determinants of Health Comments(SDOH Details): pt was evicted this am Health Related Social Needs Health related social needs: inadequate housing (Z59.1), housing instability, housed, with risk of homelessness (Z59.811), problems related to housing/economic circumstances (Z59.89) and feeling lonely/isolated (Z60.8)
[2024-03-14] MEDS: LORazepam 1 MG TAB PO ×2 (18:56→23:06)
[2024-03-14] MEDS: ARIPiprazole 2 MG TAB PO (20:04)
[2024-03-15] MEDS: levETIRAcetam 500 MG TAB PO (09:17)
[2024-03-15] MEDS: Sertraline 50 MG TAB PO (09:18)
[2024-03-15] MEDS: Apixaban 2.5 MG TAB PO (09:18)
[2024-03-15] MEDS: Pregabalin 150 MG CAP PO ×2 (09:19→14:09)
[2024-03-15 09:31] VITALS: BP 116/73; PULSE 58; RESP 20; TEMP 36.5; O2SAT 97
--- NOTE | 2024-03-15 10:52 | PDOC.MHPN2 ---
Date of service: 03/15/24 Time of Service: 10:08 Mental Health Emergency Note Release [facility] release signed:: Yes Reason for Visit Yoselin is currently waiting for voluntary inpatient treatment. In the last 2 weeks has the pt presented for ES prior to today?: Unknown Client Information Client is: New Well Housed: Yes Non Suicidal Self Injury Current: No History: No Safety Risk/Harm to Self or Others Current Ideation to Harm Self or Others: Yes to self. (Client reports endorsing SI but does not disclose plan or intent to this investment underwriter) Intent: no, has no intent. Plan: no.does not have a plan. Risk: Does risk to harm exist?: No Risk: N/A Duty to warn indicated: No Asssessment/Mental Status Appearance: Disheveled Attitude: Guarded Behavior: Gait disturbances Speech: Normal Affect: Cogruent with mood Mood: Other (tired, withdrawn) Thought process: Unremarkable Hallucinations: No evidence Delusions: No evidence Attention: Unremarkable Perception: Not impaired Orientation: Fully orientated Memory: Intact Insight: Fair Judgement: Fair Neurovegetative Symptoms Sleep: No change Appetitie: No change Interests: No change Energy: No change Libido: Not applicable Substance Use: Do you use nicotine?: No Have you used substances in the last 7 days?: No Additional Issues: Assaultive/Threatening Behavior: No Medical Concerns: No Threatening to run away: No Child reported abuse/neglect: No Voluntarily presenting for services: Yes Domestic violence is a concern: No Extreme Psychosis or extreme behavior is present: No Impression Yoselin presents to this investment underwriter laying in her bed, in hospital scrubs. Yoselin reports she is okay but tired, she could not sleep last night so she is going to try to catch up on sleep today. Yoselin reports she has already eaten breakfast this morning and she is feeling slightly better today than yesterday. Yoselin reports yesterday was a hard day and she was very emotional. Yoselin reports she woke up emotional yesterday but she also spoke to her mom on the phone and had not talked to her mom in awhile. Yoselin reports her conversation with mom was good but made her more emotional. Yoselin reports she is endorsing SI at this time but did not disclose plan or intent to this investment underwriter and respond to both questions with, I don't know Yoselin reports she wants to go to voluntary inpatient treatment and will remain at [facility] until there is a bed. Yoselin presented guarded and with gait disturbance as she was tired and attempting to sleep Plan/Disposition Recommended Disposition: Hospitalization facilities contacted. Plan: Yoselin will remain at [facility] until voluntary placement can be found Person reported agreement to plan: Yes Facilities contacted if Applicable [facility] Not [facility], No bed available [facility] Not accepted, No bed available [facility] Not accepted, No bed available, [facility] Not accepted, No bed available Reports/communication Outcome discussed with: ED/Personnel
--- NOTE | 2024-03-15 11:54 | W.EDPROG ---
Date of service: 03/15/24 Time of Service: 11:55 Medical Decision Making Patient was signed out to me pending placement. Patient has been notably hemodynamically stable during her time here. She was treated with fosfomycin for urinary tract infection. [email or web address], I spoke with Dr. Jasson Galicia, he accepts the patient for transfer. I have extensively reviewed the treatment plan with the patient. I have addressed all patient concerns at this time. I have also discussed the plan with the admitting physician and they agree with the current assessment and plan and have agreed to assume responsibility for the patient. All parties demonstrate verbal understanding and agreement with our assessment and plan at this time. The documentation in this chart was dictated using [employer] dictation software. Please excuse any dictation errors. Quality:SDOH Health Related Social Needs: Health related social needs inadequate housing (Z59.1), housing instability, housed, with risk of homelessness (Z59.811), problems related to housing/economic circumstances (Z59.89), feeling lonely/isolated (Z60.8) Discharge Plan Disposition Patient Disposition: Psychiatric Hospital/Unit Specific Psychiatric Facility: [facility] Discharge Details Chief Complaint: PsychEval Clinical Impression: Depression with suicidal ideation, Diabetes mellitus, Hypertension, Cocaine use disorder, UTI (urinary tract infection) Primary Care Provider: None,None ED Provider: Soy Leyva Home Meds and New Rx's Prescriptions: No Action (DME) Asthma Check Meter 1 EACH device 1 ea Miscellaneous PRN albuterol sulfate [Proventil HFA] 1 PUFF HFA aerosol inhaler 1 puff Inhalation PRN PRN ondansetron 4 mg Tablet,Disintegrating 4 mg PO Q8H PRN aripiprazole 2 mg tablet 1 tab PO HS Patient Comments: TAKE 1 TABLET BY MOUTH AT BEDTIME sertraline 50 mg tablet 1 tab PO QAM lorazepam 1 mg tablet 1 tab PO BID PRN Patient Comments: TAKE 1 TABLET BY MOUTH TWICE DAILY NEEDED FOR PANIC ATTACKS buspirone 10 mg tablet 1 tab PO Q8H PRN hydroxyzine HCl 25 mg tablet 1 tab PO Q8H PRN Patient Comments: TAKE 1 TABLET BY MOUTH EVERY 8 HOURS NEEDED FOR ANXIETY OR PANIC pregabalin 150 mg capsule 1 cap PO TID Patient Comments: TAKE 1 CAPSULE BY MOUTH TWICE DAILY
== END 2024-03-15 15:03 ==
PROVIDERS: Emergency Medicine; Emergency Provider Student in an Organized Health Care Education/Training Program
DX: F32.A Depression, unspecified (principal); R45.851 Suicidal ideations; F14.10 Cocaine abuse, uncomplicated; N39.0 Urinary tract infection, site not specified; Z59.811 Housing instability, housed, with risk of homelessness; Z59.10 Inadequate housing, unspecified; Z59.89 Other problems related to housing and economic circumstances; Z60.8 Other problems related to social environment
CPT/HCPCS: 00123; 80307; 96127; 99285; H0046; J3490; 81003; 81015; 87086